=== PATIENT | female | born 1965 | race Caucasian/White ===

== ENCOUNTER 2020-07-25 07:39 | Outpatient (CLI) | payer OTHER, SELFPAY ==
[2020-07-25 08:00] LABS: Basophils Absolute Auto 0.1 K/mm3 (0.0-0.1); Basophils Percent Auto 0.9 % (0.2-1.2); Eosinophils Absolute Auto 0.2 K/mm3 (0-0.3); Eosinophils Percent Auto 4.1 % (0-4.4); Hematocrit 45.2 % (37.0-47.0); Hemoglobin 15.4 g/dL (12.0-15.0); Immature Granulocyte Absolute 0.01 K/mm3 (0.00-0.031); Immature Granulocyte Percent A 0.2 % (0-0.5); Lymphocytes Absolute Auto 1.92 K/mm3 (0.9-3.2); Lymphocytes Percent Auto 33.2 % (18.3-44.2); Mean Corpuscular HGB Conc 34.1 g/dl (32-36); Mean Corpuscular Hemoglobin 31.2 pg (26-34); Mean Corpuscular Volume 91.5 fl (80-100); Mean Platelet Volume 9.8 fl (7.4-10.4); Monocytes Absolute Auto 0.4 K/mm3 (0.1-0.6); Monocytes Percent Auto 6.6 % (2.6-8.5); Neutrophils Absolute Auto 3.2 K/mm3 (1.3-6.7); Platelet Count Result 141 k/mm3 (150-375); Red Blood Count 4.94 M/mm3 (4.2-5.4); White Blood Count 5.8 K/mm3 (4.5-10.0)
[2020-07-25 08:14] LABS: Anion Gap 9 mmol/L (8-16); Blood Urea Nitrogen 22 mg/dL (7-17); Calcium 9.5 mg/dL (8.4-10.2); Carbon Dioxide 26 mmol/L (22-30); Chloride 103 mmol/L (98-107); Cholesterol 232 mg/dL (0-200); Estimated Glomerular Filt Rate > 60; Glucose 131 mg/dL (65-105); HDL Direct 53 mg/dL; Potassium 4.5 mmol/L (3.4-5.0); Sodium 138 mmol/L (137-145); Triglycerides 94 mg/dL (<150)
[2020-07-25 08:25] LABS: LDL Cholesterol Direct 156 mg/dL
[2020-07-25 08:55] LABS: Free T4 Free Thyroxine 0.88 ng/mL (0.78-2.19)
== END 2020-07-25 07:40 | disposition home or self-care (01) ==
PROVIDERS: PCP Family Medicine; Visit Provider Family Medicine
DX: Z13.220 Encounter for screening for lipoid disorders (principal); Z13.1 Encounter for screening for diabetes mellitus; Z13.0 Encounter for screening for diseases of the blood and blood-forming organs and certain disorders involving the immune mechanism; Z13.29 Encounter for screening for other suspected endocrine disorder
CPT/HCPCS: 36415; 80048; 80061; 84439; 84443; 85025

== ENCOUNTER 2020-08-31 09:06 | Outpatient (CLI) | payer OTHER, SELFPAY ==
--- NOTE | ~2020-08-31 | MM_ITS ---
EXAMINATION: MM screening stephanie BI w gayathri HISTORY: Screening TECHNIQUE: Craniocaudal and mediolateral oblique 3-D tomosynthesis images were obtained and synthetic 2-D images were generated. CAD analysis was submitted and interpreted. COMPARISON: 05/03/2011 BREAST PARENCHYMAL COMPOSITION: The breasts are heterogenously dense, which may obscure small masses. FINDINGS: There are developing asymmetries in the upper central aspect of the right breast. The left breast is stable without evidence for malignancy. IMPRESSION: 1. Developing right breast asymmetries. 2. Additional mammographic views and possible breast ultrasound are recommended. BI-RADS Category 0: Incomplete: Needs additional imaging evaluation. Reviewed, dictated and finalized at location A. RMATION RESOURCE CONSULTANT IMPRESSION: 1. Developing right breast asymmetries. 2. Additional mammographic views and possible breast ultrasound are recommended . BI-RADS Category 0: Incomplete: Needs additional imaging evaluation.
== END 2020-08-31 09:07 | disposition home or self-care (01) ==
LOC: ANHIMG 09:09
PROVIDERS: PCP Family Medicine; Visit Provider Family Medicine
DX: Z12.31 Encounter for screening mammogram for malignant neoplasm of breast (principal); R92.8 Other abnormal and inconclusive findings on diagnostic imaging of breast
CPT/HCPCS: 77063; 77067

== ENCOUNTER 2020-11-06 13:19 | Outpatient (CLI) | payer OTHER, SELFPAY ==
--- NOTE | ~2020-11-06 | MM_ITS ---
EXAMINATION: MM diagnostic mammo unilat RT HISTORY: Right breast focal asymmetry on screening mammogram TECHNIQUE: Additional 3-D tomosynthesis images of the right breast were performed and synthetic 2-D i mages were generated. CAD analysis was submitted and interpreted. COMPARISON: 08/31/2020, 05/03/2011, 04/02/2010 BREAST PARENCHYMAL COMPOSITION: The breasts are heterogeneously dense, which may obscure small masses . FINDINGS: No persistent focal asymmetry is identified with spot compression views of the right breast . There is no suspicious mass, calcification, or architectural distortion. IMPRESSION: 1. No mammographic evidence of malignancy. 2. Recommend routine screening mammography in one year. BI-RADS Category 1: Negative Reviewed, dictated and finalized at location A.
== END 2020-11-06 13:20 | disposition home or self-care (01) ==
LOC: ANHIMG 13:21
PROVIDERS: PCP Family Medicine; Visit Provider Family Medicine
DX: R92.8 Other abnormal and inconclusive findings on diagnostic imaging of breast (principal); R92.2 Inconclusive mammogram
CPT/HCPCS: 77065; 77066

== ENCOUNTER 2021-01-06 07:57 | Emergency (ER) | payer OTHER, SELFPAY ==
[2021-01-06] VITALS (28 sets, daily range): BP systolic 125–158; BP diastolic 70–106; PULSE 65–81; RESP 10–21; TEMP 37.2; O2SAT 95–100
--- NOTE | 2021-01-06 08:11 | ECG_ITS ---
Measurements Intervals [place] Rate: 76 P: 40 [place]: 161 QRS: 19 QRSD: 86 T: 97 QT: 377 QTc: 424 Interpretive Statements SINUS RHYTHM BORDERLINE ST-T WAVE ABNORMALITY- ANTEROLAT/HIGH LAT LEADS BASELINE ARTIFACT- II, III, AVR, AVF, V1, V3-V6 BORDERLINE ECG Electronically Signed On 01-06-2021 8:27:59 CDT by Henry Reilly D.O.
[2021-01-06 09:51] LABS: Basophils Absolute Auto 0.1 K/mm3 (0.0-0.1); Basophils Percent Auto 0.9 % (0.2-1.2); Eosinophils Absolute Auto 0.2 K/mm3 (0-0.3); Hemoglobin 16.2 g/dL (12.0-15.0); Immature Granulocyte Absolute 0.02 K/mm3 (0.00-0.031); Immature Granulocyte Percent A 0.3 % (0-0.5); Lymphocytes Absolute Auto 2.04 K/mm3 (0.9-3.2); Lymphocytes Percent Auto 30.4 % (18.3-44.2); Mean Corpuscular HGB Conc 33.1 g/dl (32-36); Mean Corpuscular Hemoglobin 30.6 pg (26-34); Mean Corpuscular Volume 92.5 fl (80-100); Mean Platelet Volume 9.4 fl (7.4-10.4); Monocytes Absolute Auto 0.4 K/mm3 (0.1-0.6); Neutrophils Percent Auto 59.4 % (45.5-73.1); Platelet Count Result 145 k/mm3 (150-375); Red Cell Distribution Width 12.8 % (11.5-14.5); White Blood Count 6.7 K/mm3 (4.5-10.0)
[2021-01-06 10:02] LABS: Alanine Aminotransferase 46 U/L (4-35); Albumin Level 4.6 g/dL (3.5-5.1); Alkaline Phosphatase 85 U/L (38-126); Anion Gap 8 mmol/L (8-16); Aspartate Amino Transferase 32 U/L (14-36); Bilirubin,Total 0.6 mg/dL (0.2-1.3); Blood Urea Nitrogen 14 mg/dL (7-17); Calcium 9.7 mg/dL (8.4-10.2); Carbon Dioxide 28 mmol/L (22-30); Chloride 104 mmol/L (98-107); Estimated CRCL calculation 89 ml/min; Estimated Glomerular Filt Rate > 60; Glucose 107 mg/dL (65-105); Potassium 4.4 mmol/L (3.4-5.0); Sodium 140 mmol/L (137-145)
[2021-01-06] MEDS: diazePAM INJ (*CRX) 10 MG/2 ML SYRINGE 2.5 MG IV PUSH ×2 (10:03→10:20)
[2021-01-06] MEDS: FAMOTIDINE 20 MG/2 ML VIAL IV PUSH (10:04)
[2021-01-06] MEDS: MECLIZINE HCL 25 MG TABLET PO (10:04)
[2021-01-06] MEDS: SODIUM CHLORIDE 0.9% IV 1,000 ML 999 ML IV CONT (10:04)
[2021-01-06] MEDS: PROCHLORPERAZINE EDISYLATE 10 MG/2 ML VIAL IV PUSH (10:04)
--- NOTE | 2021-01-06 11:15 | ED.GENADULT ---
HPI - General Adult General Chief complaint: Dizziness Stated complaint: dizziness Time Seen by Provider: 01/06/21 09:02 Source: patient, family and RN notes reviewed Mode of arrival: ambulatory Limitations: no limitations History of Present Illness HPI narrative: Patient is a 55-year-old female who presents to emergency department for evaluation of vertigo that began Monday upon waking patient notes that she developed vertigo symptoms that occur with position change and looking to the right patient notes that she has had vertigo in the distant past that was similar in nature patient denies any URI symptoms or recent illness patient notes mild posterior head pain and neck pain patient attempted [id number] medications with minimal improvement saw her chiropractor with no improvement x2 patient on arrival does not appear distressed or uncomfortable Related Data Allergies Allergy/AdvReac Type Severity Reaction Status Date / Time No Known Allergies Allergy Unverified 03/20/19 11:35 Review of Systems Review of Systems: All systems reviewed & are unremarkable except as noted in HPI and below PMFSH Family History Family History (Updated 03/13/14 @ 07:13 by DOCTOR UNKNOWN) Other Family history of arthritis Family history of malignant neoplasm Hypertension Social History Social History Smoking status: Never smoker Alcohol intake: current Exam Narrative: Exam Narrative: GENERAL: Well-appearing, well-nourished, and in no acute distress. HEAD: Normocephalic, atraumatic. EYES: PERRLA and EOMI. ENT: Nares clear, no rhinorrhea or epistaxis. Mucous membranes moist. Oropharynx without tonsillar hypertrophy exudate or other lesions. Bilateral TMs pearly riley nonbulging CHEST: Clear to auscultation. No respiratory distress. No wheezes rales or rhonchi HEART: Regular rate and rhythm. No murmur heard. Normal peripheral pulses. EXTREMITIES: Normal range of motion. No edema. SKIN: Warm, dry, no rash. NEURO: No focal deficits. Alert and oriented x3. Cranial nerves II through XII grossly intact. Normal speech. Normal gait PSYCH: Normal mood and affect. Course Course Emergency Course: Patient evaluated for vertigo in the emergency department was hydrated given medications with some improvement will be discharged home with outpatient follow-up patient will be referred to primary care and neurology and ENT for further evaluation of her symptoms given reasons to return ABCs and vital signs intact and stable. Patient made aware of her case findings treatment plan and diagnosis Vital Signs Vital signs: Vital Signs Pulse Rate 77 01/06/21 08:06 Respiratory Rate 15 01/06/21 08:06 Pulse Oximetry 100 01/06/21 08:06 Temperature 98.9 F 01/06/21 08:38 Pulse Rate 70 01/06/21 09:01 Respiratory Rate 19 01/06/21 09:01 Blood Pressure 137/89 01/06/21 09:01 Pulse Oximetry 96 01/06/21 09:01 Medical Decision Making MDM Narrative Medical decision making narrative: Patients dizziness is positional and without focal neurological deficits on exam. Subarachnoid hemorrhage is felt to be unlikey at this time. There is no history of fever, and neck is supple without meningismus, making meningitis unlikely. No traumatic history or signs of trauma on exam. No risk factors for CVA, risk factors reviewed. NO ocular signs on exam and in history to suggest acute glaucoma. Patients dizziness is felt to be a reasonable candidate for outpatient evaluation Vital Signs Vital Signs: Vital Signs Pulse Rate 77 01/06/21 08:06 Respiratory Rate 15 01/06/21 08:06 Pulse Oximetry 100 01/06/21 08:06 Temperature 98.9 F 01/06/21 08:38 Pulse Rate 70 01/06/21 09:01 Respiratory Rate 19 01/06/21 09:01 Blood Pressure 137/89 01/06/21 09:01 Pulse Oximetry 96 01/06/21 09:01 Lab Data Result diagrams: 01/06/21 09:37 01/06/21 09:37
[2021-01-06 11:27] LABS: Add Urine Microscopic? YES; Appearance Urine Clear (Clear); Bacteria Urine 2+ /hpf; Bilirubin Urine Negative (Negative); Blood Urine Negative (Negative); Color Urine Yellow (Yellow); Glucose Urine UA Negative (Negative); Ketones Urine Negative (Negative); Leukocyte Esterase Ur Trace LEU/UL (Negative); Mucus Urine Rare /lpf; Nitrate Urine Negative (Negative); Protein Urine Negative (Negative); RBC Urine 0-2 /hpf (0-2); Squamous Epithelial Cell Urine Moderate /hpf (Few); Urobilinogen Urine Negative mg/dL (<2.0); WBC Urine 0-3 /hpf
== END 2021-01-06 12:07 | disposition home or self-care (01) ==
PROVIDERS: Emergency Medicine Emergency Medical Services; Emergency Provider Emergency Medicine; PCP Family Medicine
DX: R42 Dizziness and giddiness (principal)
CPT/HCPCS: 36415; 80053; 81001; 85025; 93005; 96361; 96374; 96375; 99284; A9270; J0780; J3360; J7030

== ENCOUNTER 2021-12-22 09:29 | Outpatient (CLI) | payer OTHER, SELFPAY ==
--- NOTE | ~2021-12-22 | MM_ITS ---
EXAMINATION: MM screening [facility] BI w gayathri HISTORY: Screening mammogram TECHNIQUE: Craniocaudal and mediolateral oblique 3-D tomosynthesis images were obtained and synthetic 2-D images were generated. CAD analysis was submitted and interpreted. COMPARISON: 11/06/2020, 08/31/2020, 05/03/2011 BREAST PARENCHYMAL COMPOSITION: The breasts are heterogeneously dense, which may obscure small masses . FINDINGS: There is no suspicious mass, calcification, or architectural distortion to suggest malignan cy in either breast. There has been no suspicious interval change. IMPRESSION: 1. No mammographic evidence of malignancy. 2. Recommend routine screening mammography in one year. BI-RADS Category 1: Negative Reviewed, dictated and finalized at location A.
== END 2021-12-22 09:30 | disposition home or self-care (01) ==
LOC: ANHIMG 09:31
PROVIDERS: PCP Family Medicine; Visit Provider Family Medicine
DX: Z12.31 Encounter for screening mammogram for malignant neoplasm of breast (principal)
CPT/HCPCS: 77063; 77067

== ENCOUNTER 2022-08-09 19:25 | Emergency (ER) | payer OTHER, SELFPAY ==
--- NOTE | ~2022-08-09 | XR_ITS ---
EXAMINATION: [id number] Exam Date/Time: 08/09/2022 19:45 RESEARCH TECHNOLOGIST HISTORY: RT RIB PAIN AFTER INJURY AT GYM Comparison: 04/29/2011. RESULT: Lines, tubes, and devices: None. Lungs and pleura: Clear. Cardiothymic silhouette: Stable. Other: No acute osseous or upper abdominal finding. IMPRESSION: No acute cardiopulmonary process. No acute osseous finding in the right ribs. Reviewed, dictated and finalized at location K. ARCH TECHNOLOGIST
[2022-08-09 19:37] VITALS: BP 143/81; PULSE 70; RESP 16; TEMP 36.7; O2SAT 95
--- NOTE | 2022-08-09 19:55 | ED.GENADULT ---
HPI - General Adult General Chief complaint: Back Pain/Injury Stated complaint: rt rib pain Time Seen by Provider: 08/09/22 19:45 Source: patient and RN notes reviewed Mode of arrival: ambulatory Limitations: no limitations History of Present Illness HPI narrative: 57year old female who presents to [facility] care with complaints of hitting her right rib area on exercise equipment about1 week ago. Patient has palpable tenderness to right rib area from right anterior lower rib region around laterally which is tender to palpation Patient reports no shortness of breath or any acute pain with breathing or inability to take a deep breath. Patient reports that she has taken some Ibuprofen and Tylenol and used Lidocaine patch along her ribs. MD complaint: right rib pain Onset (ago): day(s) (10 day history ) Location: chest (right anterior along rib cage laterally) Severity scale (1-10): 6 Related Data Home Medications Medication Instructions Recorded Confirmed cetirizine 10 mg tablet (Zyrtec) 10 mg PO DAILY 08/09/22 08/09/22 ibuprofen 800 mg tablet 800 mg PO DAILY 08/09/22 08/09/22 Allergies Allergy/AdvReac Type Severity Reaction Status Date / Time No Known Allergies Allergy Verified 08/09/22 19:51 Review of Systems Review of Systems: CONSTITUTIONAL: Denies fever, chills, or sweats. EYES: Denies visual changes, redness, or discharge. ENT: Denies rhinorrhea, congestion, sore throat, or otalgia. CARDIOVASCULAR: Denies chest pain, palpitations, or edema. RESPIRATORY: Reports pain along her right anterolateral rib cage region, no cough or dyspnea. GASTROINTESTINAL: Denies abdominal pain, nausea, vomiting, or diarrhea. GENITOURINARY: Denies dysuria or hematuria. SKIN: Denies rash or itching. MUSCULOSKELETAL: Denies back pain, joint pain, or myalgia. NEUROLOGIC: Denies headache, numbness, or weakness. PSYCHIATRIC: Denies anxiety or depression. All systems reviewed & are unremarkable except as noted in HPI and below [facility] Past Medical History Medical History (Updated 08/13/22 @ 09:08 by Lori Batista NP) Cardiomyopathy GERD (gastroesophageal reflux disease) Plantar fasciitis Surgical History Surgical History (Updated 08/13/22 @ 09:10 by Lori Batista NP) H/O cardiac radiofrequency ablation History of dilatation and curettage History of endometrial ablation Hx of JANE Previous section Family History Family History Other Family history of arthritis Family history of malignant neoplasm Hypertension Social History Social History Smoking status: Never smoker Alcohol intake: current Comments At time of signature, agree with nursing past medical, surgical, social and family history. There is no relevant family history pertinent to the presenting complaint Exam Narrative: GENERAL: Well-appearing, well-nourished, and in no acute distress. HEAD: Normocephalic, atraumatic. EYES: PERRLA and EOMI. ENT: Nares clear, no rhinorrhea or epistaxis. Mucous membranes moist.TM's normal with good light reflex, throat pink with no lesions or swelling NECK: Supple.no lymphadenopathy CHEST: Clear to auscultation. No respiratory distress.SAO2 95% on room air some palpable discomfort along anterior right ribs to lateral rib area, no cough noted or dyspnea HEART: Regular rate and rhythm. No murmur heard. Normal peripheral pulses. ABDOMEN: Soft, nontender, nondistended, normal active bowel sounds. EXTREMITIES: Normal range of motion. No edema. SKIN: Warm, dry, no rash. NEURO: No focal deficits. Alert and oriented x3. Course Course Emergency Course: Patient is aware of diagnosis, understands and agrees to treatment plan.? Anticipatory guidance given.? Patient agrees to follow-up as directed and is aware of reasons to seek care at the emergency department. Portions of this record may have been created w
== END 2022-08-09 20:50 | disposition home or self-care (01) ==
PROVIDERS: Emergency Provider Registered Nurse; PCP Family Medicine
DX: R07.89 Other chest pain (principal); K21.9 Gastro-esophageal reflux disease without esophagitis; I42.9 Cardiomyopathy, unspecified
CPT/HCPCS: 71101; 99213; G0463

== ENCOUNTER 2022-08-30 13:16 | Outpatient (CLI) | payer OTHER, SELFPAY ==
[2022-08-30 14:34] LABS: Basophils Percent Auto 0.8 % (0.2-1.2); Eosinophils Absolute Auto 0.1 K/mm3 (0-0.3); Eosinophils Percent Auto 1.8 % (0-4.4); Hematocrit 43.7 % (37.0-47.0); Immature Granulocyte Absolute 0.01 K/mm3 (0.00-0.031); Immature Granulocyte Percent A 0.2 % (0-0.5); Immature Platelet Fraction Pct 5.6 % (0.9-11.2); Lymphocytes Absolute Auto 2.15 K/mm3 (0.9-3.2); Lymphocytes Percent Auto 42.8 % (18.3-44.2); Mean Corpuscular HGB Conc 34.3 g/dl (32-36); Mean Corpuscular Volume 93.2 fl (80-100); Mean Platelet Volume 10.9 fl (7.4-10.4); Monocytes Absolute Auto 0.4 K/mm3 (0.1-0.6); Monocytes Percent Auto 7.4 % (2.6-8.5); Neutrophils Absolute Auto 2.4 K/mm3 (1.3-6.7); Platelet Count Result 116 k/mm3 (150-375); Red Blood Count 4.69 M/mm3 (4.2-5.4); Red Cell Distribution Width 13.2 % (11.5-14.5)
[2022-08-30 14:44] LABS: Anion Gap 6 mmol/L (8-16); Blood Urea Nitrogen 8 mg/dL (7-17); Calcium 8.5 mg/dL (8.4-10.2); Carbon Dioxide 27 mmol/L (22-30); Chloride 101 mmol/L (98-107); Cholesterol 198 mg/dL (0-200); Estimated Glomerular Filt Rate > 60; Glucose 131 mg/dL (65-110); HDL Direct 39 mg/dL; Potassium 3.9 mmol/L (3.4-5.0); Sodium 134 mmol/L (137-145); Triglycerides 112 mg/dL (<150)
[2022-08-30 14:59] LABS: LDL Cholesterol Direct 126 mg/dL
== END 2022-08-30 13:17 | disposition home or self-care (01) ==
PROVIDERS: PCP Family Medicine; Visit Provider Family Medicine
DX: Z13.220 Encounter for screening for lipoid disorders (principal); Z13.0 Encounter for screening for diseases of the blood and blood-forming organs and certain disorders involving the immune mechanism; Z13.1 Encounter for screening for diabetes mellitus; Z13.29 Encounter for screening for other suspected endocrine disorder
CPT/HCPCS: 36415; 80048; 80061; 84443; 85025; 85055

== ENCOUNTER 2022-09-08 15:37 | Outpatient (CLI) | payer OTHER, SELFPAY | END 2022-09-08 15:38 | disposition home or self-care (01) | PROVIDERS: PCP Family Medicine; Visit Provider Family Medicine | DX: R73.01 Impaired fasting glucose (principal) | CPT/HCPCS: 36415; 83036 ==

== ENCOUNTER 2023-03-27 10:12 | Outpatient (CLI) | payer OTHER, SELFPAY ==
[2023-03-27 11:55] LABS: Basophils Absolute Auto 0.1 K/mm3 (0.0-0.1); Eosinophils Absolute Auto 0.3 K/mm3 (0-0.3); Eosinophils Percent Auto 3.5 % (0-4.4); Hematocrit 45.2 % (37.0-47.0); Hemoglobin 15.2 g/dL (12.0-15.0); Immature Granulocyte Absolute 0.02 K/mm3 (0.00-0.031); Immature Granulocyte Percent A 0.3 % (0-0.5); Lymphocytes Absolute Auto 2.38 K/mm3 (0.9-3.2); Lymphocytes Percent Auto 33.4 % (18.3-44.2); Mean Corpuscular HGB Conc 33.6 g/dl (32-36); Mean Corpuscular Hemoglobin 31.1 pg (26-34); Mean Corpuscular Volume 92.6 fl (80-100); Mean Platelet Volume 10.2 fl (7.4-10.4); Monocytes Absolute Auto 0.5 K/mm3 (0.1-0.6); Monocytes Percent Auto 6.5 % (2.6-8.5); Neutrophils Absolute Auto 3.9 K/mm3 (1.3-6.7); Neutrophils Percent Auto 55.3 % (45.5-73.1); Platelet Count Result 160 k/mm3 (150-375); Red Blood Count 4.88 M/mm3 (4.2-5.4); White Blood Count 7.1 K/mm3 (4.5-10.0)
[2023-03-27 12:14] LABS: Anion Gap 10 mmol/L (8-16); Blood Urea Nitrogen 14 mg/dL (7-17); Calcium 9.3 mg/dL (8.4-10.2); Carbon Dioxide 27 mmol/L (22-30); Chloride 102 mmol/L (98-107); Cholesterol 245 mg/dL (0-200); Estimated Glomerular Filt Rate > 60; Glucose 112 mg/dL (65-110); HDL Direct 39 mg/dL; Potassium 4.5 mmol/L (3.4-5.0); Sodium 139 mmol/L (137-145); Triglycerides 187 mg/dL (<150)
[2023-03-27 12:25] LABS: LDL Cholesterol Direct 155 mg/dL
[2023-03-27 13:51] LABS: Hemoglobin A1C 6.1 % (<5.7)
== END 2023-03-27 10:13 | disposition home or self-care (01) ==
LOC: ANHLAB 10:15
PROVIDERS: PCP Family Medicine; Visit Provider Family Medicine
DX: Z13.29 Encounter for screening for other suspected endocrine disorder (principal); R73.01 Impaired fasting glucose; Z13.0 Encounter for screening for diseases of the blood and blood-forming organs and certain disorders involving the immune mechanism; Z13.220 Encounter for screening for lipoid disorders
CPT/HCPCS: 36415; 80048; 80061; 83036; 84443; 85025

== ENCOUNTER 2023-08-23 10:19 | Outpatient (CLI) | payer OTHER, SELFPAY ==
[2023-08-23 11:13] LABS: Basophils Percent Auto 0.6 % (0.2-1.2); Eosinophils Absolute Auto 0.2 K/mm3 (0-0.3); Eosinophils Percent Auto 4.1 % (0-4.4); Hematocrit 44.7 % (37.0-47.0); Immature Granulocyte Absolute 0.01 K/mm3 (0.00-0.031); Immature Granulocyte Percent A 0.2 % (0-0.5); Lymphocytes Absolute Auto 1.82 K/mm3 (0.9-3.2); Lymphocytes Percent Auto 35.8 % (18.3-44.2); Mean Corpuscular HGB Conc 33.6 g/dl (32-36); Mean Corpuscular Volume 92.4 fl (80-100); Mean Platelet Volume 9.9 fl (7.4-10.4); Monocytes Absolute Auto 0.3 K/mm3 (0.1-0.6); Monocytes Percent Auto 5.7 % (2.6-8.5); Neutrophils Absolute Auto 2.7 K/mm3 (1.3-6.7); Neutrophils Percent Auto 53.6 % (45.5-73.1); Platelet Count Result 153 k/mm3 (150-375); Red Blood Count 4.84 M/mm3 (4.2-5.4); Red Cell Distribution Width 13.3 % (11.5-14.5); White Blood Count 5.1 K/mm3 (4.5-10.0)
[2023-08-23 11:26] LABS: Alanine Aminotransferase 25 U/L (6-35); Albumin Level 4.1 g/dL (3.5-5.1); Alkaline Phosphatase 67 U/L (38-126); Anion Gap 4 mmol/L (8-16); Aspartate Amino Transferase 25 U/L (14-36); Blood Urea Nitrogen 10 mg/dL (7-17); Calcium 9.3 mg/dL (8.4-10.2); Carbon Dioxide 29 mmol/L (22-30); Chloride 107 mmol/L (98-107); Cholesterol 142 mg/dL (0-200); Estimated Glomerular Filt Rate > 60; Glucose 97 mg/dL (65-110); HDL Direct 39 mg/dL; Potassium 4.4 mmol/L (3.4-5.0); Sodium 140 mmol/L (137-145); Triglycerides 86 mg/dL (<150)
[2023-08-23 11:28] LABS: Hemoglobin A1C 5.7 % (<5.7)
[2023-08-23 11:37] LABS: LDL Cholesterol Direct 85 mg/dL
[2023-08-23 12:56] LABS: Creatinine Urine 166.5 mg/dL
[2023-08-23 13:00] LABS: MALB Creatinine Ratio 4.1 mg/g (0-30); Microalbumin Urine Random 6.9 mg/L (0-16.7)
[2023-08-23 13:21] LABS: Vitamin D 25 Hydroxy 22.8 ng/mL
== END 2023-08-23 10:20 | disposition home or self-care (01) ==
PROVIDERS: PCP Family Medicine; Visit Provider Family Medicine
DX: Z00.00 Encounter for general adult medical examination without abnormal findings (principal); E78.5 Hyperlipidemia, unspecified; D69.6 Thrombocytopenia, unspecified; E11.9 Type 2 diabetes mellitus without complications; Z13.29 Encounter for screening for other suspected endocrine disorder
CPT/HCPCS: 36415; 80053; 80061; 82043; 82306; 83036; 84443; 85025

== ENCOUNTER 2023-12-19 14:03 | Outpatient (CLI) | payer OTHER, SELFPAY ==
--- NOTE | ~2023-12-19 | MM_ITS ---
EXAMINATION: MM screening stephanie BI w gayathri HISTORY: Screening TECHNIQUE: Craniocaudal and mediolateral oblique 3-D tomosynthesis images were obtained and synthetic 2-D images were generated. CAD analysis was submitted and interpreted. COMPARISON: Comparison to multiple prior studies sequentially, with oldest reviewed study dated 08/31. BREAST PARENCHYMAL COMPOSITION: Dense: The breasts are heterogeneously dense, which may obscure small masses FINDINGS: There is no evidence of suspicious mass, calcification, or architectural distortion to sugg est malignancy in either breast. There has been no suspicious interval change. IMPRESSION: 1. No mammographic evidence of malignancy. 2. Recommend routine screening mammography in one year. BI-RADS Category 1: Negative Reviewed, dictated and finalized at location B.
== END 2023-12-19 14:04 | disposition home or self-care (01) ==
PROVIDERS: PCP Family Medicine; Visit Provider Family Medicine
DX: Z12.31 Encounter for screening mammogram for malignant neoplasm of breast (principal)
CPT/HCPCS: 77063; 77067

== ENCOUNTER 2024-10-31 00:29 | Day surgery (SDC) | payer OTHER, SELFPAY ==
[2024-10-28 09:12] VITALS: BMI 25.9
--- OUTSIDE RECORDS SUMMARY | 2024-10-31 00:33 | XMS_ITS | Referral Summary ---
Author Organization [address] Address [address] [place] [id number] Care Team Providers Care [employer] [place] [place] Manager Name Role Phone Augustine Ledesma MD Primary Care Provid er Encounters Date Type Department Care Team Description 08/05/2024 Letter (Out) [facility] [address] [phone] 08/05/2024 8:00 AM FARM IMPLEMENT ENGINE MECHANIC Office Visit [facility] [address] [phone] Augustine Ledesma MD Annual physical exam (Primary Dx); Type 2 diabetes mellitus without complication, without long-term current use of insulin (HCC); Encounter for diabetic foot exam (HCC); Hyperlipidemia, unspecified hyperlipidemia type; Chronic bilateral low back pain without sciatica; Colon cancer screening from Last 3 Months Allergies Active Allergy Reactions Criticality Noted Date Comments Metformin Stomach upset Low 04/19/2023 Medications ubidecarenone (coenzyme Q10) 100 mg tablet Take by mouth Active cetirizine (ZyrTEC) 10 mg chewable tablet Take 1 tablet (10 mg total) by mouth daily Active fluocinonide (LIDEX) 0.05 % cream Apply topically 2 (two) times a day as needed for irritation or rash 180 g 4 09/04/19 24 Active atorvastatin (LIPITOR) 20 mg tabletIndications: Hyperlipidemia, unspecified hyperlipidemia type Take 1 tablet (20 mg total) by mouth daily 90 tablet 3 12/12/19 24 025 Active Mounjaro 5 mg/0.5 mL pen injector injectionIndicatio ns:Type 2 diabetes mellitus without complication, without long-term current use of insulin (HCC) Inject 0.5 mL (5 mg total) under the skin every 7 days 2 mL 5 10/17/19 25 Active OneTouch Verio test strips stripIndications:T ype 2 diabetes mellitus without complication, without long-term current use of insulin (HCC) Use to check blood glucose 1-2 times daily as directed 100 each 1 10/17/19 25 Active ibuprofen (ADVIL,MOTRIN) 800 mg tabletIndications: Chronic bilateral low back pain without sciatica Take 1 tablet (800 mg total) by mouth every 8 (eight) hours as needed for pain 270 tablet 3 10/17/19 25 Active OneTouch Verio test strips stripIndications:T ype 2 diabetes mellitus without complication, without long-term current use of insulin (HCC) USE DIRECTED ONCE TO TWICE DAILY 01/20/20 23 025 Discontin ued(Reord er) ibuprofen (ADVIL,MOTRIN) 800 mg tabletIndications: Chronic bilateral low back pain without sciatica Take 1 tablet (800 mg total) by mouth every 8 (eight) hours as needed for pain 270 tablet 3 12/13/19 24 025 Discontin ued(Reord er) Mounjaro 5 mg/0.5 mL pen injector INJECT 5 MG UNDER THE SKIN ONCE A WEEK DIRECTED 07/23/19 25 025 Discontin ued(Reord er) Active Problems Problem Noted Date Diagnosed Date Allergic rhinitis 09/14/2018 Immunizations Immunization Administration Dates Next Due COVID-19 mRNA ([place]) 0.3 m L (30 mcg) vaccine (12 years and up) 05/15/2023 Flucelvax Influenza Quad 05/02/2019 Influenza, Unspecified 06/19/2024(Deferr ed: Patient Refused),05/14/2023,04/19/2023(Deferred : Patient Refused),04/05/2022,05/05/2020 Pfizer SARS-CoV-2 Monovalent Vaccination (12+ Yrs) PURPLE 07/25/2020,07/04/2020 Pneumococcal Conjugate Pcv20 05/15/2023 Tdap 10/15/2014 ZOSTER Recombinant 07/03/2019,05/02/2019 Social History Tobacco Use Types Packs/Day Years Used Date Smoking Tobacco: Never Smokeless Tobacco: Never Tobacco Cessation:Counseling Given: Not Answered Alcohol Use Standard Drinks/Week Comments Yes 0 (1 standard drink = 0.6 oz pur e alcohol) AUDIT-C Answer Date Recorded Q1: How often do you have a drink containing alc ohol? Monthly or less 09/04/2023 Q2: How many drinks containi ng alcohol do you have on a typical day when you are drinking? 1 or 2 09/04/2023 Q3: How often do you have si x or more drinks on one occasion? Never 09/04/2023 PHQ-2 Answer Date Recorded PHQ-2 Total Score 0 08/05/2024 Comments No Sex and Gender Information Value Date Recorded Sex Assigned at Not on file Legal Sex Female 10:53 PM FARM IMPLEMENT ENGINE MECHANIC Gender Identity Female 05/16/2023 9:11 AM CDT Sexual Orientation Not on file Last Filed Vital Signs Vital Sign Reading Time Taken Comments Blood Pressure 136/88 08/05/2024 7:58 AM FARM IMPLEMENT ENGINE MECHANIC Pulse 74 08/05/2024 7:58 AM FARM IMPLEMENT ENGINE MECHANIC Temperature 36.9 C (98.4 F) 08/05/2024 7:58 AM FARM IMPLEMENT ENGINE MECHANIC Respiratory Rate 16 08/05/2024 7:58 AM FARM IMPLEMENT ENGINE MECHANIC Oxygen Saturation 97% 08/05/2024 7:58 AM FARM IMPLEMENT ENGINE MECHANIC Inhaled Oxygen Concentration - - Weight 82.9 kg (182 lb 12.8 oz) 08/05/2024 7:58 AM FARM IMPLEMENT ENGINE MECHANIC Height 177.8 cm (5' 10 ) 08/05/2024 7:58 AM FARM IMPLEMENT ENGINE MECHANIC Body Mass Index 26.23 08/05/2024 7:58 AM FARM IMPLEMENT ENGINE MECHANIC Plan of Treatment Not on file Procedures Procedure Name Priority Date/Time Associated Diagnosis Comments COMPREHENSIVE METABOLIC PANEL Routine 08/01/2024 2:40 PM FARM IMPLEMENT ENGINE MECHANIC MAMMOGRAPHY Routine 12/19/2023 DIABETES EYE EXAM Routine 10/23/2023 PAP AND HPV, REFLEX TO HPV GENOTYPES Routine 09/04/2023 8:32 AM FARM IMPLEMENT ENGINE MECHANIC Encounter for well woman exam with routine gynecological exam Screening for HPV (human papillomavirus) HEMOGLOBIN A1C Routine 03/27/2023 Impaired fasting glucose LIPID PANEL Routine 08/30/2022 HM COLONOSCOPY Routine 03/20/2019 9:56 AM CDT from Last 3 Months or Most Recently Relevant to Health Maintenance Results * (ABNORMAL) Comprehensive metabolic panel (08/01/2024 2:40 PM FARM IMPLEMENT ENGINE MECHANIC) SCRIBED Sodium 139 137 - 145 mmol/L EXTERNAL LAB SCRIBED Potassium 4.3(A) 3.4 - 4.0 mmol/L EXTERNAL LAB SCRIBED Chloride 106 98 - 107 mmol/L EXTERNAL LAB SCRIBED Carbon Dioxide 24 22 - 30 mmol/L EXTERNAL LAB SCRIBED Anion Gap 9 4 - 12 mmol/L EXTERNAL LAB SCRIBED Urea Nitrogen (BUN) 16 7 - 17 mg/dl EXTERNAL LAB SCRIBED Creatinine 0.69(A) 0.7 - 1.0 mg/dl EXTERNAL LAB SCRIBED Glucose 103 65 - 110 mg/dl EXTERNAL LAB SCRIBED Calcium 9.2 8.4 - 10.2 mg/dl EXTERNAL LAB SCRIBED Bilirubin 0.6 0.2 - 1.3 mg/dl EXTERNAL LAB SCRIBED Plasma Protein 7.0 6.3 - 8.2 g/dl EXTERNAL LAB SCRIBED Albumin 4.5 3.5 - 5.1 g/dl EXTERNAL LAB SCRIBED Alkaline Phosphatase 73 38 - 126 Units/L EXTERNAL LAB SCRIBED Alanine Transaminase (ALT) 16 6 - 35 Units/L EXTERNAL LAB SCRIBED Aspartate Transaminase (AST) 19 14 - 36 Units/L EXTERNAL LAB SCRIBED eGFR in >60 - - - EXTERNAL LAB SCRIBED eGFR in NonAfrican Citizen Of [place] >60 - - - EXTERNAL LAB Blood us Historical Provider LAB BLOOD ORDERABLES Lana marsh Result EXTERNAL LAB * MAMMOGRAPHY (12/19/2023) Mammography Normal Historical Provider MD HEALTH MAINTENANCE Final Result * DIABETES EYE EXAM (10/23/2023) SCRIBED DIABETIC DILATED EYE EXAM Normal Historical Provider HEALTH MAINTENANCE Final Result * Pap and HPV, reflex to HPV Genotypes (09/04/2023 8:32 AM FARM IMPLEMENT ENGINE MECHANIC) CLINICAL INFORMATION: retickr [facility] Comment: Postmenopausal WELL WOMAN EXAM LMP [employer] [facility] Comment:POSTMENOPAUSAL Previous Pap retickr [facility] Comment:NONE GIVEN Prev. Bx [facility] [employer] [facility] Comment:NONE GIVEN SOURCE: [facility] Comment:Cervix, Endocervix Pap, specimen adequacy [facility] Comment: Satisfactory for evaluation. Endocervical/transformation zone component present. HPV interp [facility] Comment: Cytology Results: Negative for intraepithelial lesion or malignancy. COMMENTS [facility] Comment: This Pap test has been evaluated with computer assisted technology. Prefabricator [facility] Comment: CONRADO GODWIN(ASCP) CT Screening Location: [place] [address] [place] [address] Comment [facility] Comment: EXPLANATORY NOTE: The Pap is a screening test for cervical cancer. It is not a diagnostic test and is subject to false negative and false positive results. It is most reliable when a satisfactory sample, regularly obtained, is submitted with relevant clinical findings and history, and when the Pap result is evaluated along with historic and current clinical information. Human papillomavirus DNA, High Risk E6/E7 Not Detected NOT DETECTED [employer] /[employer] [facility] Comment: Not Detected High Risk HPV types (16,18,31,33,35,39,45,51,52, 56,58,59,66,68) were not detected. Other HPV types which cause anogenital lesions may be present. The significance of the other types of HPV in malignant processes has not been established. Methodology: Real Time PCR Thin prep 09/04/2023 8:32 AM FARM IMPLEMENT ENGINE MECHANIC 09/06/2023 12:53 PM FARM IMPLEMENT ENGINE MECHANIC Augustine Ledesma MD LAB CYTOLOGY ORDERAB LES Final Result [facility] [address] [place] [address] [facility] [address] [place] [address] * Hemoglobin A1c (03/27/2023) SCRIBED Hemoglobin A1c 6.1 <5.7 - <5.7 % EXTERNAL LAB Blood 03/27/2023 Augustine Ledesma MD LAB BLOOD ORDERABLES Final Result EXTERNAL LAB * Lipid panel (08/30/2022) SCRIBED Cholesterol, Total 198 0 - 200 EXTERNAL LAB SCRIBED HDL 39 >35 - >35 EXTERNAL LAB SCRIBED LDL 126 <130 - <130 EXTERNAL LAB SCRIBED Triglycerides 112 <150 - <150 EXTERNAL LAB Blood Historical Provider LAB BLOOD ORDERABLES Lana l Result EXTERNAL LAB * HM COLONOSCOPY (03/20/2019 9:56 AM CDT) Scribed Colonoscopy Normal Historical Provider HEALTH MAINTENANCE Edited Result - Final from Last 3 Months or Most Recently Relevant to Health Maintenance Insurance [facility] Care Teams [employer] Manager Relationship Specialty Start Date End Date Augustine Ledesma MD [address] [place] [id number] PCP - General 04/13/11
--- OUTSIDE RECORDS SUMMARY | 2024-10-31 00:33 | XMS_ITS | Clinical Summary ---
Author Organization [address] Address [address] [place] [address] [place] [address] Care Team Providers Care Liquid Fertilizer Servicer Name Role Phone Augustine Ledesma MD Primary Care Provid er Allergies Active Allergy Reactions Criticality Noted Date [...] Noted Date Diagnosed Date Allergic rhinitis 09/14/2018 Encounters Date Type Department Care Team Description 08/05/2024 8:00 AM PATIENT CARE ASSOCIATE Office Visit [facility] [address] [place] [phone] Augustine Ledesma MD Annual physical exam (Primary Dx); Type 2 diabetes mellitus without complication, without long-term current use of insulin (HCC); Encounter for diabetic foot exam ([facility]); Hyperlipidemia, unspecified hyperlipidemia type; Chronic bilateral low back pain without sciatica; Colon cancer screening 08/05/2024 Letter (Out) [facility] [address] [phone] from Last 3 Months Immunizations Immunization Administration Dates Next Due COVID-19 mRNA ([employer]) 0.3 m L (30 mcg) vaccine (12 years and up) 05/15/2023 Flucelvax Influenza Quad 05/02/2019 Influenza, Unspecified 06/19/2024(Deferr ed: Patient Refused),05/14/2023,04/19/2023(Deferred : Patient Refused),04/05/2022,05/05/2020 Pfizer SARS-CoV-2 Monovalent Vaccination (12+ Yrs) PURPLE 07/25/2020,07/04/2020 Pneumococcal Conjugate Pcv20 05/15/2023 Tdap 10/15/2014 ZOSTER Recombinant 07/03/2019,05/02/2019 Surgical History Surgery Date Site/Laterality Comments PLANTAR FASCIA SURGERY Medical History Medical History Date Comments Hx Other Medical Arrhythmias (bi geminy, freq PAC's, PSVT, NSVT, PVC Hx Other Medical Cardiomyopathy Hx Other Medical Arrhythmias (s/ p PVC ablation) Hypertension Hypertension Adiposity Obesity Allergic rhinitis Family History * Patient is adopted Medical History Relation Name Comments Bladder Cancer Mother Bladder Cance r; Relation Name Status Comments Mother Alive Social History Tobacco Use Types Packs/Day Years [...] on file Legal Sex Female 10:53 PM PATIENT CARE ASSOCIATE Gender Identity Female 05/16/2023 9:11 AM CDT Sexual Orientation Not on file Obstetrics History Last Filed Vital Signs Vital Sign Reading Time Taken Comments Blood Pressure 136/88 08/05/2024 7:58 AM PATIENT CARE ASSOCIATE Pulse 74 08/05/2024 7:58 AM PATIENT CARE ASSOCIATE Temperature 36.9 C (98.4 F) 08/05/2024 7:58 AM PATIENT CARE ASSOCIATE Respiratory Rate 16 08/05/2024 7:58 AM PATIENT CARE ASSOCIATE Oxygen Saturation 97% 08/05/2024 7:58 AM PATIENT CARE ASSOCIATE Inhaled Oxygen Concentration - - Weight 82.9 kg (182 lb 12.8 oz) 08/05/2024 7:58 AM PATIENT CARE ASSOCIATE Height 177.8 cm (5' 10 ) 08/05/2024 7:58 AM PATIENT CARE ASSOCIATE Body Mass Index 26.23 08/05/2024 7:58 AM PATIENT CARE ASSOCIATE Plan of Treatment Health Maintenance Due Date Last Done Comments Albumin Creatinine Ratio, Urine 1965 Hepatitis C Screening 1967 Hepatitis B Screening 1985 Colon Cancer Screening-Colonoscopy 03/20/2020 03/20/2019, 03/20/2014 Lipid Panel 08/30/2023 08/30/2022 Hemoglobin A1C 09/25/2023 03/27/2023, 09/08/2022 Covid-19 Vaccine ( - 2023-2 5 season) 2024 05/15/2023, 03/31/2022, 04/23/2021, Additional history exists DTaP/Tdap/Td Vaccine (2 - Td or Tdap) 10/15/2024 10/15/2014 Dilated Eye Exam 10/22/2024 10/23/2023, 10/17/2022 Breast Cancer Screening-Mammogram 12/18/2024 12/19/2023, 12/22/2021, 08/31/2020 eGFR 08/01/2025 08/01/2024, 03/27/2023 Depression Screening 08/05/2025 08/05/2024, 09/04/2023, 09/02/2022, Additional history exists Foot Exam 08/05/2025 08/05/2024, 07/18, 09/04/2023, Additional history exists Regular Well Visit/Exam 18-64 08/05/2025, 08/05/2024, 09/04/2023, Additional history exists Cervical Cancer Screening 09/04/2026 09/04/2023, Colon Cancer Screening-CT Colonography Discontinued 03/20/2019, 03/20/2014 Colon Cancer Screening-DNA Stool Discontinued 03/20/20 19, 03/20/2014 Colon Cancer Screening-FIT Discontinued 03/20/2019, Colon Cancer Screening-Sigmoidoscopy Discontinued 03/20/2019, 03/20/2014 Zoster Vaccine Completed 07/03/2019, 05/02/2019 Pneumococcal vaccine <65 Completed 05/15/2023 Influenza Vaccine Completed 2024, , 04/05/2022, Additional history exists Procedures Procedure Name Priority Date/Time Associated Diagnosis Comments COMPREHENSIVE METABOLIC PANEL Routine 08/01/2024 2:40 PM PATIENT CARE ASSOCIATE MAMMOGRAPHY Routine 12/19/2023 DIABETES EYE EXAM Routine 10/23/2023 PAP AND HPV, REFLEX TO HPV GENOTYPES Routine 09/04/2023 8:32 AM PATIENT CARE ASSOCIATE Encounter for well woman exam with routine gynecological exam Screening for HPV (human papillomavirus) HEMOGLOBIN A1C Routine 03/27/2023 Impaired fasting glucose LIPID PANEL Routine 08/30/2022 COLONOSCOPY Routine 03/20/2019 9:56 AM CDT from Last 3 Months or Most Recently Relevant to Health Maintenance Results * (ABNORMAL) Comprehensive metabolic panel (08/01/2024 2:40 PM PATIENT CARE ASSOCIATE) SCRIBED Sodium 139 137 - 145 mmol/L [...] - EXTERNAL LAB SCRIBED eGFR in NonAfrican [place] >60 - - - EXTERNAL LAB Blood Historical Provider MD LAB BLOOD ORDERABLES Lana marsh Result EXTERNAL LAB * MAMMOGRAPHY (12/19/2023) Mammography Normal Historical Provider MD HEALTH MAINTENANCE Final Result * DIABETES EYE EXAM (10/23/2023) SCRIBED DIABETIC DILATED EYE EXAM Normal [facility] Provider HEALTH MAINTENANCE Final Result * Pap and HPV, reflex to HPV Genotypes (09/04/2023 8:32 AM PATIENT CARE ASSOCIATE) CLINICAL INFORMATION: [place] [facility] Comment: Postmenopausal WELL WOMAN EXAM LMP [facility] [employer] [facility] Comment:POSTMENOPAUSAL Previous Pap [facility] [employer] [facility] Comment:NONE GIVEN Prev. Bx [facility] [employer] [facility] Comment:NONE GIVEN SOURCE: [facility] [employer] [facility] Comment:Cervix, Endocervix Pap, specimen adequacy [facility] Comment: Satisfactory for evaluation. Endocervical/transformation zone component present. HPV interp [facility] Comment: Cytology Results: Negative for intraepithelial lesion or malignancy. COMMENTS [facility] Comment: This Pap test has been evaluated with computer assisted technology. Academic Specialist [facility] Comment: CONRADO GODWIN(ASCP) CT Screening Location: [place] [address] [place] [address] Comment [facility] [employer] [facility] Comment: EXPLANATORY NOTE: The Pap is a [...] High Risk E6/E7 Not Detected NOT DETECTED [employer] [facility] Comment: Not Detected High Risk HPV types (16,18,31,33,35,39,45,51,52, 56,58,59,66,68) were not detected. Other HPV types which cause anogenital lesions may be present. The significance of the other types of HPV in malignant processes has not been established. Methodology: Real Time PCR Thin prep 09/04/2023 8:32 AM PATIENT CARE ASSOCIATE 09/06/2023 12:53 PM PATIENT CARE ASSOCIATE Augustine Ledesma MD LAB CYTOLOGY ORDERAB LES Final Result [facility] [address] [place] [address] [facility] [address] [place] [address] * Hemoglobin A1c (03/27/2023) SCRIBED Hemoglobin A1c 6.1 <5.7 - <5.7 % EXTERNAL LAB Blood 03/27/2023 Augustine Ledesma MD LAB BLOOD ORDERABLES Final Result Performing Organization Address [facility] Co de Phone Number EXTERNAL LAB * Lipid panel (08/30/2022) SCRIBED Cholesterol, Total 198 0 - 200 EXTERNAL LAB SCRIBED HDL 39 >35 - >35 EXTERNAL LAB SCRIBED LDL 126 <130 - <130 EXTERNAL LAB SCRIBED Triglycerides 112 <150 - <150 EXTERNAL LAB Blood Historical Provider LAB BLOOD ORDERABLES Lana l Result EXTERNAL LAB * HM COLONOSCOPY (03/20/2019 9:56 AM CDT) Scribed HM Colonoscopy Normal Historical Provider HEALTH MAINTENANCE Edited Result - Final from Last 3 Months or Most Recently Relevant to Health Maintenance Insurance [facility] [place] [employer] Address: [address] [address] [place] [address] [facility] [place] [employer] Address: [address] [address] [place] [address] Care Teams Liquid Fertilizer Servicer Relationship Specialty Start Date End Date Augustine Ledesma MD [address] [place] [id number] PCP - General 04/13/11
--- OUTSIDE RECORDS SUMMARY | 2024-10-31 00:33 | XMS_ITS | Clinical Summary ---
Author Organization [facility] Address [address] [place] [id number] Care Team Providers Care Tire Changer Name Role Phone Unavailable Primary Care Provider Unavailabl e Social History Tobacco Use Types Packs/Day Years Used Date Smoking Tobacco: Never Assessed Comments Unknown Sex and Gender Information Value Date Recorded Sex Assigned at Not on file Legal Sex Female 5:54 PM CDT Gender Identity Not on file Sexual Orientation Not on file Plan of Treatment Health Maintenance Due Date Last Done Comments Cervical Cancer Screening Pa p Smear (Age 30 to 64) Every 3 Years 1967 Colorectal Cancer Screening Colonoscopy (10 Years) 1967 Annual Physical 1970 Hepatitis C 1985 DTaP, Tdap and Td Vaccines ( 1 - Tdap) 1986 Hepatitis B Vaccines (1 of 3 - 19+ 3-dose series) 1986 Cervical Cancer Screening Pa p with HPV Testing (Age 30 to 64) Every 5 Years 1997 Cervical Cancer Screening with HPV 1997 Mammogram Screening 2007 Zoster Vaccines (1 of 2) 2017 COVID-19 Vaccine (2023-2 5 season) 2024 Meningococcal B Vaccine Aged Out No l onger eligible based on patient's age to complete this topic Meningococcal Vaccine Aged Out No martinez gibson eligible based on patient's age to complete this topic Pneumococcal Vaccine: Pediat rics (0 to 5 Years) and At-Risk Patients (6 to 49 Years) Aged Out No longer eligible b ased on patient's age to complete this topic RSV Immunizations Under 20 Months Aged Out No longer eligible based on patient's age to complete this topic
[2024-10-31 07:13] VITALS: BP 142/79; PULSE 82; RESP 18; TEMP 36.6; O2SAT 98; BMI 25.9
[2024-10-31] MEDS: LACTATED RINGERS 1,000 ML 150 ML IV CONT (07:24)
[2024-10-31 07:26] LABS: Glucose Point of Care 104 mg/dl (65-105)
--- NOTE | 2024-10-31 07:49 | WPDANESEPPF ---
Anes - Initial Pre Proc Eval Procedure: Operation Date: 10/31/24 08:30 Proposed Procedures p Screening Colonoscopy - Miguel Toro MD Date/Time: 10/31/24 07:49 Surgeon: Miguel Toro MD Pre Op Diagnosis: screening colon Patient Data Age: 59 Gender: F Height: 1.78 m Weight: 82 kg Last Vital Signs Temp 36.6 C 10/31/24 07:13 Pulse 82 10/31/24 07:13 Resp 18 10/31/24 07:13 BP 142/79 H 10/31/24 07:13 Pulse Ox 98 10/31/24 07:13 O2 Del Method Room Air 10/31/24 07:13 Allergies Allergy/AdvReac Type Severity Reaction Status Date / Time metformin AdvReac Severe Diarrhea Verified 10/31/24 07:11 Home Medications ?Medication ?Instructions ?Recorded ?Confirmed ?Type cetirizine 10 mg tablet (Zyrtec) 10 mg PO DAILY 08/09/22 10/31/24 History ibuprofen 800 mg tablet 800 mg PO DAILY 08/09/22 10/31/24 History acetaminophen 500 mg capsule 1,000 mg PO DAILY 10/28/24 10/28/24 History atorvastatin 20 mg tablet 20 mg PO DAILY 10/28/24 10/31/24 History tirzepatide 5 mg/0.5 mL 5 mg subcut WEEKLY 10/28/24 10/28/24 History subcutaneous pen injector (Mounjaro) Laboratory Tests 10/31/24 07:22 POC Capillary Glucose 104 mg/dl (65-105) Patient hx anesthesia problems: none Family hx anesthesia problems: none Results Review: All pre-operative results and documents have been reviewed as part of the pre-operative evaluation. [facility] Past Medical History Medical History Cardiomyopathy Plantar fasciitis GERD (gastroesophageal reflux disease) Surgical History Surgical History Previous section History of dilatation and curettage H/O cardiac radiofrequency ablation History of endometrial ablation Hx of LASIK Family History Family History Other Family history of arthritis Family history of malignant neoplasm Hypertension Social History Social History Smoking status: Never smoker Alcohol intake: current Living arrangements: with family Spiritual care concerns: No Anes - Eval Final PreProcedure Day of Procedure 10/31/24 07:49 Patient weight: overweight Heart: regular rate and rhythm Lungs: clear to auscultation Airway: Mallampati scale class II Neurological: alert and oriented Last oral intake: >/= 8 hours ASA classification: III Emergent: no Anesthetic plan: proceed Anesthesia type and monitoring: general GIVS and standard monitoring Results Review: All pre-operative results and documents have been reviewed as part of the pre-operative evaluation. Informed Consent: The patient's anesthetic plan and its attendant risks and benefits were discussed with the patient/family/POA. Questions were solicited and answers provided to the satisfaction of the patient/family/POA.
--- NOTE | 2024-10-31 08:09 | PM.HPGS ---
History of Present Illness History of Present Illness Consent: Risks, benefits, and alternatives have been discussed and questions answered. Patient agrees to proceed with procedure. Chief complaint: screening colon Narrative: Wilma Pina is a 59 year old female here for screening colonoscopy, last one 2017 Review of Systems Review of Systems: All systems reviewed & are unremarkable except as noted in HPI and below PMFSH Past Medical History Medical History (Updated 10/31/24 @ 08:10 by Miguel Toro MD) Colon cancer screening Cardiomyopathy Plantar fasciitis GERD (gastroesophageal reflux disease) Surgical History Surgical History Previous section History of dilatation and curettage H/O cardiac radiofrequency ablation History of endometrial ablation Hx of LASIK Family History Family History Other Family history of arthritis Family history of malignant neoplasm Hypertension Social History Social History Smoking status: Never smoker Alcohol intake: current Living arrangements: with family Spiritual care concerns: No Meds Home Medications and Allergies Home Medications ?Medication ?Instructions ?Recorded ?Confirmed ?Type cetirizine 10 mg tablet (Zyrtec) 10 mg PO DAILY 08/09/22 10/31/24 History ibuprofen 800 mg tablet 800 mg PO DAILY 08/09/22 10/31/24 History acetaminophen 500 mg capsule 1,000 mg PO DAILY 10/28/24 10/28/24 History atorvastatin 20 mg tablet 20 mg PO DAILY 10/28/24 10/31/24 History tirzepatide 5 mg/0.5 mL 5 mg subcut WEEKLY 10/28/24 10/28/24 History subcutaneous pen injector (Mounjaro) Allergies Allergy/AdvReac Type Severity Reaction Status Date / Time metformin AdvReac Severe Diarrhea Verified 10/31/24 07:11 Vital Signs Vital Signs - 24 hr 10/31/24 07:13 Temperature 97.8 F Pulse Rate 82 Respiratory Rate 18 Blood Pressure 142/79 H Pulse Oximetry 98 Oxygen Delivery Room Air Exam Const: General: comfortable and no acute distress HENMT: Face/Nose/Sinus: Normal nares present Eyes: General: appearance normal, both eyes and all related structures Neck: Neck: no JVD Resp: Auscultation: clear to auscultation bilaterally Cardio: Rate: regular rate Rhythm: regular rhythm GI: Inspection: non-distended GI Palp: Yes Soft to palpation Skin: General skin exam: normal color Neuro: General: gait normal Speech: normal speech Extrem: General: normal to inspection Psych: Mental Status: mental status grossly normal Assessment and Plan Assessment and plan (1) Colon cancer screening: Code(s): Z12.11 - Encounter for screening for malignant neoplasm of colon Status: Acute Assessment and Plan: colonoscopy
[2024-10-31 08:34] VITALS: BP 121/63; PULSE 70; RESP 18; O2SAT 99
[2024-10-31 08:44] VITALS: BP 112/66; PULSE 65; RESP 18; O2SAT 100
[2024-10-31 08:54] VITALS: BP 133/74; PULSE 62; RESP 18; O2SAT 100
== END 2024-10-31 09:01 | disposition home or self-care (01) ==
PROVIDERS: PCP Physician Assistant; Visit Provider Internal Medicine Gastroenterology
PROC: 0DJD8ZZ Inspection of Lower Intestinal Tract, Via Natural or Artificial Opening Endoscopic (ICD-10-PCS; CPT 45378; principal; 2024-10-31 08:30)
DX: Z12.11 Encounter for screening for malignant neoplasm of colon (principal); D12.2 Benign neoplasm of ascending colon; K63.5 Polyp of colon; K64.8 Other hemorrhoids; Z79.85 Long-term (current) use of injectable non-insulin antidiabetic drugs
CPT/HCPCS: 45380; 82948; 88305; J2003; J2405; J2704; J7120

== ENCOUNTER 2024-12-19 09:14 | Outpatient (CLI) | payer OTHER, SELFPAY ==
--- NOTE | ~2024-12-19 | MM_ITS ---
EXAMINATION: MM screening [facility] BI w gayathri HISTORY: Screening TECHNIQUE: Craniocaudal and mediolateral oblique 3-D tomosynthesis images were obtained and synthetic 2-D images were generated. CAD analysis was submitted and interpreted. COMPARISON: 12/19/2023 through 04/02/2010. BREAST PARENCHYMAL COMPOSITION: Dense: The breasts are heterogeneously dense, which may obscure small masses FINDINGS: There is no evidence of suspicious mass, calcification, or architectural distortion to sugg est malignancy in either breast. There has been no suspicious interval change. IMPRESSION: 1. No mammographic evidence of malignancy. 2. Recommend routine screening mammography in one year. BI-RADS Category 1: Negative Reviewed, dictated and finalized at location B.
--- OUTSIDE RECORDS SUMMARY | 2024-12-19 09:57 | XMS_ITS | Clinical Summary ---
Author Organization [address] Address [address] [place] [address] [place] [address] Care Team Providers Care Nutritionist Public Health Name Role Phone Yu Alexandra Primary Care Provider + Allergies Active Allergy Reactions Criticality Noted Date Comments Metformin Stomach upset Low 04/19/2023 Medications ubidecarenone (coenzyme Q10) 100 mg tablet Take by mouth Active cetirizine (ZyrTEC) 10 mg chewable tablet Take 1 tablet (10 mg total) by mouth daily Active fluocinonide (LIDEX) 0.05 % cream Apply topically 2 (two) times a day as needed for irritation or rash 180 g 4 4 Active atorvastatin (LIPITOR) 20 mg tabletIndications: Hyperlipidemia, unspecified hyperlipidemia type Take 1 tablet (20 mg total) by mouth daily 90 tablet 3 4 Active Mounjaro 5 mg/0.5 mL pen injector injectionIndicatio ns:Type 2 diabetes mellitus without complication, without long-term current use of insulin (HCC) Inject 0.5 mL (5 mg total) under the skin every 7 days 2 mL 5 5 Active OneTouch Verio test strips stripIndications:T ype 2 diabetes mellitus without complication, without long-term current use of insulin (HCC) Use to check blood glucose 1-2 times daily as directed 100 each 1 5 Active ibuprofen (ADVIL,MOTRIN) 800 mg tabletIndications: Chronic bilateral low back pain without sciatica Take 1 tablet (800 mg total) by mouth every 8 (eight) hours as needed for pain 270 tablet 3 5 Active acetaminophen (TYLENOL) 500 mg tablet Take 2 tablets (1,000 mg total) by mouth every 6 (six) hours as needed for pain Takes every morning Active meclizine (ANTIVERT) 25 mg tablet Take 1 tablet (25 mg total) by mouth 3 (three) times a day as needed for dizziness 30 tablet 5 Active ondansetron ODT (ZOFRAN-ODT) 4 mg disintegrating tablet Take 1 tablet (4 mg total) by mouth every 8 (eight) hours as needed for nausea or vomiting 20 tablet 5 Active Active Problems Problem Noted Date Diagnosed Date Type 2 diabetes mellitus with hyperlipidemia Assessment & Plan (11/12/2024 4:43 PM CDT): Chronic, stable Well-controlled with last A1c 5.5 Reviewed labs from Jul 2024 at [place] - will be scanned/entered into chart. Blood sugar monitored two to three times a week. Discussed addition of ZIGGY-I, patient declines- she refuses lisinopril but may consider other renal protective agent in the future - Repeat labs in January. - Continue current blood sugar monitoring routine. - Mounjaro 5 mg weekly, atorvastatin 20 mg daily - Eye exam scheduled for next week - Foot exam in office today is normal, no signs of neuropathy Orders: Lipid panel; Future Hemoglobin A1c; Future Comprehensive metabolic panel; Future Vitamin B12; Future Vertigo 11/12/2024 Assessment & Plan (11/12/2024 4:43 PM CDT): Chronic issue Intermittent vertigo managed with meclizine and Zofran. Avoids medications that may lower blood pressure. - Continue meclizine 25 mg as needed. - Continue Zofran ODT 4 mg as needed. Allergic rhinitis 09/14/2018 Encounters Date Type Department Care Team Description 11/12/2024 2:30 PM CDT Office Visit [facility] Family Medicine [address] [phone] Yu Alexandra PA Type 2 diabetes mellitus with hyperlipidemia (HCC) (Primary Dx); Encounter for vitamin deficiency screening; Vertigo from Last 3 Months Immunizations Immunization Administration Dates Next Due COVID-19 mRNA (PFIZER) 0.3 m L (30 mcg) vaccine (12 years and up) 05/15/2023 Flucelvax Influenza Quad 05/02/2019 Influenza, Quadrivalent, Spl it, Preservative Free, Intramuscular 05/14/2023 Influenza, Unspecified 04/17/2024,2022,04/19/2023(Defer red: Patient Refused),04/05/2022,05/05/2020 MMR 09/01/2024 Pfizer SARS-CoV-2 Monovalent Vaccination (12+ Yrs) PURPLE 07/25/2020,07/04/2020 Pneumococcal Conjugate Pcv20 05/15/2023 Tdap 09/01/2024,10/15/2014 ZOSTER Recombinant 07/03/2019,05/02/2019 Surgical History Surgery Date Site/Laterality Comments PLANTAR FASCIA SURGERY LASIK 2006 SECTION 05/29/2003 09/03/2008 Medical History Medical History Date Comments Hx Other Medical Arrhythmias (bi geminy, freq PAC's, PSVT, NSVT, PVC Hx Other Medical Cardiomyopathy Hx Other Medical Arrhythmias (s/ p PVC ablation) Hypertension Hypertension Adiposity Obesity Allergic rhinitis Diabetes mellitus (HCC) 08/2022 Family History * Patient is adopted Medical History Relation Name Comments Heart attack Maternal Grandfather Mayur Arthritis Maternal Grandmother Fam Solano Bladder Cancer Mother Martina Fam Bladder Cance r; Cancer Mother Martina Fam Heart disease Mother Martina Fam Hyperlipidemia Mother Martina Fam Hypertension Mother Martina Fam Relation Name Status Comments Maternal Grandfather Mayur Alive Maternal Grandmother Fam Solano Alive Mother Martina Fam Alive Social History Tobacco Use Types Packs/Day Years Used Date Smoking Tobacco: Never Smokeless Tobacco: Never Tobacco Cessation:Counseling Given: Not Answered Alcohol Use Standard Drinks/Week Comments Yes 0 (1 standard drink = 0.6 oz pur e alcohol) AUDIT-C Answer Date Recorded Q1: How often do you have a drink containing alc ohol? Monthly or less 11/12/2024 Q2: How many drinks containi ng alcohol do you have on a typical day when you are drinking? 1 or 2 11/12/2024 Q3: How often do you have si x or more drinks on one occasion? Never 11/12/2024 PHQ-2 Answer Date Recorded PHQ-2 Total Score (If total score is 3 or more points, staff should administer the PHQ-9) 0 11/12/2024 Comments No Sex and Gender Information Value Date Recorded Sex Assigned at Not on file Legal Sex Female 10:53 PM AIRBORNE OPERATIONS SUPERINTENDENT Gender Identity Female 05/16/2023 9:11 AM CDT Sexual Orientation Not on file Obstetrics History Last Filed Vital Signs Vital Sign Reading Time Taken Comments Blood Pressure 120/68 11/12/2024 2:32 PM CDT Pulse 80 11/12/2024 2:32 PM CDT Temperature 36.7 C (98 F) 11/12/2024 2:32 PM CDT Respiratory Rate 16 11/12/2024 2:32 PM CDT Oxygen Saturation 99% 11/12/2024 2:32 PM CDT Inhaled Oxygen Concentration - - Weight 84 kg (185 lb 1.6 oz) 11/12/2024 2:32 PM CDT Height 177.8 cm (5' 10) 11/12/2024 2:32 PM CDT Body Mass Index 26.56 11/12/2024 2:32 PM CDT Plan of Treatment Health Maintenance Due Date Last Done Comments Hepatitis C Screening 1965 Hepatitis B Screening 1985 Covid-19 Vaccine (2023- 5 season) 2024 05/15/2023, 03/31/2022, 04/23/2021, Additional history exists Dilated Eye Exam 10/22/2024 10/23/2023, 10/17/2022 Breast Cancer Screening-Mammogram 12/18/2024 12/19/2023, 12/22/2021, 08/31/2020 Hemoglobin A1C 01/28/2025 07/31/2024, 03/17, 09/08/2022 Albumin Creatinine Ratio, Urine 07/31/2025 Lipid Panel 07/31/2025 07/31/2024, 08/30/2022 eGFR 08/01/2025 08/01/2024, 03/27/2023 Regular Well Visit/Exam 18-64 08/05/2025, 08/05/2024, 09/04/2023, Additional history exists Depression Screening 11/12/2025 11/12/2024, 08/05/2024, 09/04/2023, Additional history exists Foot Exam 11/12/2025 11/12/2024, 07/18, 08/05/2024, Additional history exists Cervical Cancer Screening 09/04/2026 09/04/2023, Colon Cancer Screening-Colonoscopy 10/31/2029 10/31/2024, 03/20/2019, 03/20/2014 DTaP/Tdap/Td Vaccine (3 - Td or Tdap) 09/01/2034 09/01/2024, 10/15/2014 Zoster Vaccine Completed 07/03/2019, 05/02/2019 Pneumococcal vaccine <65 Completed 05/15/2023 Influenza Vaccine Completed 04/17/2024, , 05/14/2023, Additional history exists Colon Cancer Screening-CT Colonography Discontinued 10/31/2024, 03/20/2019, 03/20/2014 Colon Cancer Screening-DNA Stool Discontinued 10/31/2024, 03/20/2019, 03/20/2014 Colon Cancer Screening-FIT Discontinued 10/31, 03/20/2019, 03/20/2014 Colon Cancer Screening-Sigmoidoscopy Discontinued 10/31/2024, 03/20/2019, 03/20/2014 Procedures Procedure Name Priority Date/Time Associated Diagnosis Comments COLONOSCOPY Routine 10/31/2024 12:45 PM CDT COMPREHENSIVE METABOLIC PANEL Routine 08/01/2024 2:40 PM AIRBORNE OPER[employer] SUPERINTENDENT ALBUMIN CREATININE RATIO, URINE Routine 07/31/2024 7:32 AM AIRBORNE OPERATIONS SUPERINTENDENT HEMOGLOBIN A1C Routine 07/31/2024 7:31 AM [employer]BORNE OPERATIONS SUPERINTENDENT Type 2 diabetes mellitus with hyperlipidemia (HCC) LIPID PANEL Routine 07/31/2024 7:31 AM [employer]BORNE OPERATIONS SUPERINTENDENT Type 2 diabetes mellitus with hyperlipidemia (HCC) MAMMOGRAPHY Routine 12/19/2023 DIABETES EYE EXAM Routine 10/23/2023 PAP AND HPV, REFLEX TO HPV GENOTYPES Routine 09/04/2023 8:32 AM AIRBORNE OPERATIONS SUPERINTENDENT Encounter for well woman exam with routine gynecological exam Screening for HPV (human papillomavirus) from Last 3 Months or Most Recently Relevant to Health Maintenance Results * Colonoscopy (10/31/2024 12:45 PM CDT) Anatomical Region Laterality Modality Other Historical Provider ENDOSCOPY PROCEDURES Lana l Result * (ABNORMAL) Comprehensive metabolic panel (08/01/2024 2:40 PM [employer]BORNE [employer]PER[employer] SUPERINTENDENT) SCRIBED Sodium 139 137 - 145 mmol/L [...] - EXTERNAL LAB SCRIBED eGFR in NonAfrican Senegalese >60 - - - EXTERNAL LAB Blood Historical Provider LAB BLOOD ORDERABLES Lana l Result EXTERNAL LAB * HM ALBUMIN CREATININE RATIO, URINE (07/31/2024 7:32 AM AIRBORNE OPERATIONS SUPERINTENDENT) SCRIBED HM ALBUMIN CREATININE RATIO, URINE 21.0 EXTERNAL LAB 07/31/2024 7:32 AM [employer]BORNE OPERATIONS SUPERINTENDENT Historical Provider HEALTH MAINTENANCE Final Result Performing Organization Address City/[facility] Co de Phone Number EXTERNAL LAB * Hemoglobin A1c (07/31/2024 7:31 AM AIRBORNE OPERATIONS SUPERINTENDENT) SCRIBED Hemoglobin A1c 5.5 4.0 - 5.6 % EXTERNAL LAB Blood 07/31/2024 7:31 AM [employer]BORNE OPERATIONS SUPERINTENDENT Yu CHAVARRIA LAB BLOOD ORDERABLES Fin al Result Performing Organization Address [facility] Co de Phone Number EXTERNAL LAB * Lipid panel (07/31/2024 7:31 AM AIRBORNE OPERATIONS SUPERINTENDENT) SCRIBED Cholesterol, Total 143 30 - 199 mg/dL EXTERNAL LAB SCRIBED Triglycerides 102 <=149 mg/dL EXTERNAL LAB SCRIBED HDL 44 >=40 mg/dL EXTERNAL LAB SCRIBED LDL 78 <=129 mg/dL EXTERNAL LAB Scribed Non-HDL Cholesterol 0 NONE mg/dL EXTERNAL LAB SCRIBED Total Cholesterol/HDL Ratio 0 NONE EXTERNAL LAB Blood 07/31/2024 7:31 AM [employer]BORNE OPERATIONS SUPERINTENDENT Yu CHAVARRIA LAB BLOOD ORDERABLES Fin al Result Performing Organization Address City/[facility] Co de Phone Number EXTERNAL LAB * HM MAMMOGRAPHY (12/19/2023) Mammography Normal Result [facility] Historical Provider HEALTH MAINTENANCE Final Result * HM DIABETES EYE EXAM (10/23/2023) SCRIBED DIABETIC DILATED EYE EXAM Normal us Historical Provider HEALTH MAINTENANCE Final Result * Pap and HPV, reflex to HPV Genotypes (09/04/2023 8:32 AM AIRBORNE OPERATIONS SUPERINTENDENT) CLINICAL INFORMATION: [facility] Comment: Postmenopausal WELL WOMAN EXAM LMP [facility] Comment:POSTMENOPAUSAL Previous Pap [facility] Comment:NONE GIVEN Prev. Bx [facility] Comment:NONE GIVEN SOURCE: [facility] Comment:Cervix, Endocervix Pap, specimen adequacy [facility] Comment: Satisfactory for evaluation. Endocervical/transformation zone component present. HPV interp [facility] Comment: Cytology Results: Negative for intraepithelial lesion or malignancy. COMMENTS [facility] Comment: This Pap test has been evaluated with computer assisted technology. Product Support Technician [facility] Comment: CONRADO GODWIN(ASCP) CT Screening Location: [place] [address] [address] JODI Tran [id number] Comment [facility] Comment: EXPLANATORY NOTE: The Pap is a [...] High Risk E6/E7 Not Detected NOT DETECTED [facility] /Néstor sosa [place] Comment: Not Detected High Risk HPV types (16,18,31,33,35,39,45,51,52, 56,58,59,66,68) were not detected. Other HPV types which cause anogenital lesions may be present. The significance of the other types of HPV in malignant processes has not been established. Methodology: Real Time PCR Thin prep 09/04/2023 8:32 AM [employer]BORNE OPERATIONS SUPERINTENDENT 09/06/2023 12:53 PM [employer]BORNE OPERATIONS SUPERINTENDENT Augustine Ledesma MD LAB CYTOLOGY ORDERAB LES Final Result [facility] [address] [address]ouse [phone] [facility] [address] [place] [address] from Last 3 Months or Most Recently Relevant to Health Maintenance Insurance [facility] Care Teams Nutritionist Public Health Relationship Specialty Start Date End Date Yu Alexandra PA [address] [place] [address] PCP - General Family Medicine 11/12/24
--- OUTSIDE RECORDS SUMMARY | 2024-12-19 09:57 | XMS_ITS | Referral Summary ---
Author Organization [address] Address [address] [place] [address] Care Team Providers Care Parts Salesman Name Role Phone Yu Alexandra Primary Care Provider + Encounters Date Type Department Care Team Description 11/12/2024 2:30 PM CDT Office Visit [facility] Family Medicine [address] [place] [phone] Yu Alexandra PA Type 2 diabetes mellitus with hyperlipidemia (HCC) (Primary Dx); Encounter for vitamin deficiency screening; Vertigo from Last 3 Months Allergies Active Allergy [...] complication, without long-term current use of insulin ([facility]) Inject 0.5 mL (5 mg total) under the skin every 7 days 2 mL 5 5 Active OneTouch Verio test strips stripIndications:T ype 2 diabetes mellitus without complication, without long-term current use of insulin ([facility]) Use to check blood glucose 1-2 times [...] 5.5 Reviewed labs from Jul 2024 at [place] - will be scanned/entered into chart. Blood [...] 4 mg as needed. Allergic rhinitis 09/14/2018 Immunizations Immunization Administration Dates Next Due COVID-19 mRNA (EVRST) 0.3 m L (30 mcg) vaccine (12 years and up) 05/15/2023 Flucelvax Influenza Quad 05/02/2019 Influenza, Quadrivalent, Spl it, Preservative Free, Intramuscular 05/14/2023 Influenza, Unspecified 04/17/2024,2022,04/19/2023(Defer red: Patient Refused),04/05/2022,05/05/2020 MMR 09/01/2024 Pfizer SARS-CoV-2 Monovalent Vaccination (12+ Yrs) PURPLE 07/25/2020,07/04/2020 Pneumococcal Conjugate Pcv20 05/15/2023 Tdap 09/01/2024,10/15/2014 ZOSTER Recombinant 07/03/2019,05/02/2019 Social History Tobacco Use [...] on file Legal Sex Female 10:53 PM PUTTIER Gender Identity Female 05/16/2023 9:11 AM CDT [...] 11/12/2024 2:32 PM CDT Plan of Treatment Not on file Procedures Procedure Name Priority Date/Time Associated Diagnosis Comments COLONOSCOPY Routine 10/31/2024 12:45 PM CDT COMPREHENSIVE METABOLIC PANEL Routine 08/01/2024 2:40 PM PUTTIER ALBUMIN CREATININE RATIO, URINE Routine 07/31/2024 7:32 AM PUTTIER HEMOGLOBIN A1C Routine 07/31/2024 7:31 AM PUTTIER Type 2 diabetes mellitus with hyperlipidemia (HCC) LIPID PANEL Routine 07/31/2024 7:31 AM PUTTIER Type 2 diabetes mellitus with hyperlipidemia (HCC) MAMMOGRAPHY Routine 12/19/2023 DIABETES EYE EXAM Routine 10/23/2023 PAP AND HPV, REFLEX TO HPV GENOTYPES Routine 09/04/2023 8:32 AM PUTTIER Encounter for well woman exam with routine gynecological exam Screening for HPV (human papillomavirus) from Last 3 Months or Most Recently Relevant to Health Maintenance Results * Colonoscopy (10/31/2024 12:45 PM CDT) Anatomical Region Laterality Modality Other us Historical Provider ENDOSCOPY PROCEDURES Lana l Result * (ABNORMAL) Comprehensive metabolic panel (08/01/2024 2:40 PM PUTTIER) SCRIBED Sodium 139 137 - 145 mmol/L [...] - EXTERNAL LAB SCRIBED eGFR in NonAfrican Rwandan >60 - - - EXTERNAL LAB Blood Historical Provider LAB BLOOD ORDERABLES Lana l Result Performing Organization Address [facility]/ZIP Co de Phone Number EXTERNAL LAB * HM ALBUMIN CREATININE RATIO, URINE (07/31/2024 7:32 AM PUTTIER) SCRIBED HM ALBUMIN CREATININE RATIO, URINE 21.0 EXTERNAL LAB 07/31/2024 7:32 AM PUTTIER Historical Provider HEALTH MAINTENANCE Final Result EXTERNAL LAB * Hemoglobin A1c (07/31/2024 7:31 AM PUTTIER) SCRIBED Hemoglobin A1c 5.5 4.0 - 5.6 % EXTERNAL LAB Blood 07/31/2024 7:31 AM PUTTIER Yu CHAVARRIA LAB BLOOD ORDERABLES Fin al Result EXTERNAL LAB * Lipid panel (07/31/2024 7:31 AM PUTTIER) SCRIBED Cholesterol, Total 143 30 - 199 mg/dL EXTERNAL LAB SCRIBED Triglycerides 102 <=149 mg/dL EXTERNAL LAB SCRIBED HDL 44 >=40 mg/dL EXTERNAL LAB SCRIBED LDL 78 <=129 mg/dL EXTERNAL LAB Scribed Non-HDL Cholesterol 0 NONE mg/dL EXTERNAL LAB SCRIBED Total Cholesterol/HDL Ratio 0 NONE EXTERNAL LAB Blood 07/31/2024 7:31 AM PUTTIER Yu CHAVARRIA LAB BLOOD ORDERABLES Fin al Result Performing Organization Address City/[facility]/ZIP Co de Phone Number EXTERNAL LAB * HM MAMMOGRAPHY (12/19/2023) Mammography Normal Historical Provider MD HEALTH MAINTENANCE Final Result * DIABETES EYE EXAM (10/23/2023) SCRIBED DIABETIC DILATED EYE EXAM Normal Historical Provider MD HEALTH MAINTENANCE Final Result * Pap and HPV, reflex to HPV Genotypes (09/04/2023 8:32 AM PUTTIER) CLINICAL INFORMATION: [facility] [employer] [facility] Comment: Postmenopausal WELL WOMAN EXAM LMP [facility] [employer] [facility] Comment:POSTMENOPAUSAL Previous Pap [facility] [employer] [facility] Comment:NONE GIVEN Prev. Bx [facility] Comment:NONE GIVEN SOURCE: [facility] Comment:Cervix, Endocervix Pap, specimen adequacy [facility] [employer] [facility] Comment: Satisfactory for evaluation. Endocervical/transformation zone component present. HPV interp [facility] [employer] [facility] Comment: Cytology Results: Negative for intraepithelial lesion or malignancy. COMMENTS [facility] [employer] [facility] Comment: This Pap test has been evaluated with computer assisted technology. Last Repairer Helper [facility] [employer] [facility] Comment: JAF, CT(ASCP) CT Screening Location: [place] [address] [address] JODI Tran [id number] Comment [facility] [employer] [facility] Comment: EXPLANATORY NOTE: The Pap is [...] High Risk E6/E7 Not Detected NOT DETECTED [employer] /Néstor [facility]pa[facility] schoolm[facility] [place] Comment: Not Detected High Risk HPV types (16,18,31,33,35,39,45,51,52, 56,58,59,66,68) were not detected. Other HPV types which cause anogenital lesions may be present. The significance of the other types of HPV in malignant processes has not been established. Methodology: Real Time PCR Thin prep 09/04/2023 8:32 AM PUTTIER 09/06/2023 12:53 PM PUTTIER Augustine Ledesma MD LAB CYTOLOGY ORDERAB LES Final Result Performing Organization Address City/State/[facility] Co de Phone Number [facility] [address] [place] [address] [facility] [employer]/[facility] [address] [address] from Last 3 Months or Most Recently Relevant to Health Maintenance Insurance [facility] HMO/PPO Address: [facility] [address] [place] [address] [facility] HMO/PPO Address: [address] [address] Care Teams Parts Salesman Relationship Specialty Start Date End Date Yu Alexandra PA [address] [place] [address] PCP - General Family Medicine 11/12/24
== END 2024-12-19 09:15 | disposition home or self-care (01) ==
LOC: ANHIMG 09:17
PROVIDERS: PCP Family Medicine; Visit Provider Family Medicine
DX: Z12.31 Encounter for screening mammogram for malignant neoplasm of breast (principal)
CPT/HCPCS: 77063; 77067

== ENCOUNTER 2025-02-01 08:22 | Outpatient (CLI) | payer OTHER, SELFPAY ==
--- OUTSIDE RECORDS SUMMARY | 2025-02-01 08:34 | XMS_ITS | Clinical Summary ---
Author Organization [facility] Address [address] [place] [address] Care Team Providers Care Supervisor Electronics Inspection Name Role Phone Unavailable Primary Care Provider [...] Screening with HPV 1997 Mammogram Screening 2007 Pneumococcal Vaccine: 50+ Ye ars (1 of 1 - PCV) 2017 Zoster Vaccines (1 of 2) 2017 COVID-19 [...]
--- OUTSIDE RECORDS SUMMARY | 2025-02-01 08:34 | XMS_ITS | Referral Summary ---
Author Organization [address] Address [address] [place] [phone] Care Team Providers Care Spot Cleaner Name Role Phone Yu Alexandra Primary Care Provider + Encounters Date Type Department Care Team Description 11/12/2024 2:30 PM CDT Office Visit [facility] Family Medicine [address] [place] [phone] Yu Alexandra PA Type 2 diabetes [...] or rash 180 g 4 4 Active Mounjaro 5 mg/0.5 mL pen [...] nausea or vomiting 20 tablet 5 Active atorvastatin (LIPITOR) 20 mg tabletIndications: Hyperlipidemia, unspecified hyperlipidemia type TAKE 1 TABLET BY MOUTH EVERY DAY 100 tablet 1 5 Active Active Problems Problem Noted Date Diagnosed Date Type 2 diabetes mellitus with hyperlipidemia Assessment & Plan (11/12/2024 4:43 PM CDT): Chronic, stable Well-controlled with last A1c 5.5 Reviewed labs from Jul 2024 at [place] - will be scanned/entered into chart. Blood [...] Immunization Administration Dates Next Due COVID-19 mRNA (LiveBid) 0.3 m L (30 mcg) vaccine (12 [...] on file Legal Sex Female 10:53 PM AIRLINE TICKET AGENT Gender Identity Female 05/16/2023 9:11 AM CDT [...] Procedure Name Priority Date/Time Associated Diagnosis Comments MAMMOGRAPHY Routine 12/19/2024 2:12 PM CDT COLONOSCOPY Routine 10/31/2024 12:45 PM CDT COMPREHENSIVE METABOLIC PANEL Routine 08/01/2024 2:40 PM AIRLINE TICKET AGENT ALBUMIN CREATININE RATIO, URINE Routine 07/31/2024 7:32 AM AIRLINE TICKET AGENT HEMOGLOBIN A1C Routine 07/31/2024 7:31 AM AIRLINE TICKET AGENT Type 2 diabetes mellitus with hyperlipidemia (HCC) LIPID PANEL Routine 07/31/2024 7:31 AM AIRLINE TICKET AGENT Type 2 diabetes mellitus with hyperlipidemia (HCC) DIABETES EYE EXAM Routine 10/23/2023 PAP AND HPV, REFLEX TO HPV GENOTYPES Routine 09/04/2023 8:32 AM AIRLINE TICKET AGENT Encounter for well woman exam with routine gynecological exam Screening for HPV (human papillomavirus) from Last 3 Months or Most Recently Relevant to Health Maintenance Results * HM MAMMOGRAPHY (12/19/2024 2:12 PM CDT) us Historical Provider HEALTH MAINTENANCE Final Result * Colonoscopy (10/31/2024 12:45 PM CDT) Anatomical Region Laterality Modality Other us Historical Provider ENDOSCOPY PROCEDURES Lana l Result * (ABNORMAL) Comprehensive metabolic panel (08/01/2024 2:40 PM AIRLINE TICKET AGENT) SCRIBED Sodium 139 137 - 145 mmol/L [...] - EXTERNAL LAB SCRIBED eGFR in NonAfrican Vincentian >60 - - - EXTERNAL LAB Blood Historical Provider LAB BLOOD ORDERABLES Lana l Result EXTERNAL LAB * HM ALBUMIN CREATININE RATIO, URINE (07/31/2024 7:32 AM AIRLINE TICKET AGENT) SCRIBED HM ALBUMIN CREATININE RATIO, URINE 21.0 EXTERNAL LAB 07/31/2024 7:32 AM AIRLINE TICKET AGENT Historical Provider HEALTH MAINTENANCE Final Result EXTERNAL LAB * Hemoglobin A1c (07/31/2024 7:31 AM AIRLINE TICKET AGENT) SCRIBED Hemoglobin A1c 5.5 4.0 - 5.6 % EXTERNAL LAB Blood 07/31/2024 7:31 AM AIRLINE TICKET AGENT Yu CHAVARRIA LAB BLOOD ORDERABLES Fin al Result EXTERNAL LAB * Lipid panel (07/31/2024 7:31 AM AIRLINE TICKET AGENT) SCRIBED Cholesterol, Total 143 30 - 199 mg/dL EXTERNAL LAB SCRIBED Triglycerides 102 <=149 mg/dL EXTERNAL LAB SCRIBED HDL 44 >=40 mg/dL EXTERNAL LAB SCRIBED LDL 78 <=129 mg/dL EXTERNAL LAB Scribed Non-HDL Cholesterol 0 NONE mg/dL EXTERNAL LAB SCRIBED Total Cholesterol/HDL Ratio 0 NONE EXTERNAL LAB Blood 07/31/2024 7:31 AM AIRLINE TICKET AGENT Yu CHAVARRIA LAB BLOOD ORDERABLES Fin al Result Performing Organization Address City/[facility]/ZIP Co de Phone Number EXTERNAL LAB * HM DIABETES EYE EXAM (10/23/2023) SCRIBED DIABETIC DILATED EYE EXAM Normal Historical Provider MD HEALTH MAINTENANCE Final Result * Pap and HPV, reflex to HPV Genotypes (09/04/2023 8:32 AM AIRLINE TICKET AGENT) CLINICAL INFORMATION: [facility] Comment: Postmenopausal WELL WOMAN EXAM LMP [facility] Comment:POSTMENOPAUSAL Previous Pap [facility] Comment:NONE GIVEN Prev. Bx [facility] Comment:NONE GIVEN SOURCE: [facility] Comment:Cervix, Endocervix Pap, specimen adequacy [facility] Comment: Satisfactory for evaluation. Endocervical/transformation zone component present. HPV interp [facility] Comment: Cytology Results: Negative for intraepithelial lesion or malignancy. COMMENTS [facility] Comment: This Pap test has been evaluated with computer assisted technology. Agile Coach [facility] Comment: CONRADO GODWIN(ASCP) CT Screening Location: [place] [address] Administration JODI Tran [facility] Comment [facility] Comment: EXPLANATORY NOTE: The Pap is [...] High Risk E6/E7 Not Detected NOT DETECTED [place] /Néstor Hunt [facility] Comment: Not Detected High Risk HPV types (16,18,31,33,35,39,45,51,52, 56,58,59,66,68) were not detected. Other HPV types which cause anogenital lesions may be present. The significance of the other types of HPV in malignant processes has not been established. Methodology: Real Time PCR Thin prep 09/04/2023 8:32 AM AIRLINE TICKET AGENT 09/06/2023 12:53 PM AIRLINE TICKET AGENT Augustine Ledesma MD LAB CYTOLOGY ORDERAB LES Final Result Performing Organization Address City/State/[facility] Co va Phone Number [facility] [address] [place] [address] [place]/[facility]or [facility] [address] [facility] [place] [address] from Last 3 Months or Most Recently Relevant to Health Maintenance Insurance [facility] H[facility]/PPO Address: [address] [address] [facility] HMO/PPO Address: [address] [address] Care Teams Spot Cleaner Relationship Specialty Start Date End Date Yu lAexandra PA [address] [place] [address] PCP - General Family Medicine 11/12/24
--- OUTSIDE RECORDS SUMMARY | 2025-02-01 08:34 | XMS_ITS | Clinical Summary ---
Author Organization [address] Address [address] [place] [address] [place] [address] Care Team Providers Care Envelope Maker Name Role Phone Yu Alexandra Primary Care [...] day as needed for dizziness 30 tablet Active ondansetron ODT (ZOFRAN-ODT) 4 mg disintegrating [...] 5.5 Reviewed labs from Jul 2024 at [place] - will be scanned/entered into chart. Blood [...] Description 11/12/2024 2:30 PM CDT Office Visit [facility] Family Medicine [address] [place] [phone] Yu Alexandra PA Type 2 diabetes [...] on file Legal Sex Female 10:53 PM INVENTORY CHECKER Gender Identity Female 05/16/2023 9:11 AM CDT [...] 1965 Hepatitis B Screening 1985 Covid-19 Vaccine (2023-08 5 season) 2024 05/15/2023, 03/31/2022, 04/23/2021, Additional history exists Dilated Eye Exam 10/22/2024 10/23/2023, 10/17/2022 Hemoglobin A1C 01/28/2025 07/31/2024, 03/17, 09/08/2022 Influenza Vaccine (#1) 2025 , 05/14/2023, 05/14/2023, Additional history exists Albumin Creatinine Ratio, Urine 07/31/2025 Lipid Panel 07/31/2025 07/31/2024, 08/30/2022 eGFR 08/01/2025 08/01/2024, 03/27/2023 Regular Well Visit/Exam 18-64 08/05/2025, 08/05/2024, 09/04/2023, Additional history exists Depression Screening 11/12/2025 11/12/2024, 08/05/2024, 09/04/2023, Additional history exists Foot Exam 11/12/2025 11/12/2024, 07/18, 08/05/2024, Additional history exists Breast Cancer Screening-Mammogram 12/19/2025 12/19/2024, 12/19/2023, 12/22/2021, Additional history exists Cervical Cancer Screening 09/04/2026 09/04/2023, Colon Cancer Screening-Colonoscopy 10/31/2029 10/31/2024, 03/20/2019, 03/20/2014 DTaP/Tdap/Td Vaccine (3 - Td or Tdap) 09/01/2034 09/01/2024, 10/15/2014 Zoster Vaccine Completed 07/03/2019, 05/02/2019 Pneumococcal vaccine <65 Completed 05/15/2023 Colon Cancer Screening-CT Colonography Discontinued 10/31/2024, 03/20/2019, 03/20/2014 Colon Cancer Screening-DNA Stool Discontinued 10/31/2024, 03/20/2019, 03/20/2014 Colon Cancer Screening-FIT Discontinued 10/31, 03/20/2019, 03/20/2014 Colon Cancer Screening-Sigmoidoscopy Discontinued 10/31/2024, 03/20/2019, 03/20/2014 Procedures Procedure Name Priority Date/Time Associated Diagnosis Comments MAMMOGRAPHY Routine 12/19/2024 2:12 PM CDT COLONOSCOPY Routine 10/31/2024 12:45 PM CDT COMPREHENSIVE METABOLIC PANEL Routine 08/01/2024 2:40 PM INVENTORY CHECKER ALBUMIN CREATININE RATIO, URINE Routine 07/31/2024 7:32 AM INVENTORY CHECKER HEMOGLOBIN A1C Routine 07/31/2024 7:31 AM INVENTORY CHECKER Type 2 diabetes mellitus with hyperlipidemia (HCC) LIPID PANEL Routine 07/31/2024 7:31 AM INVENTORY CHECKER Type 2 diabetes mellitus with hyperlipidemia (HCC) DIABETES EYE EXAM Routine 10/23/2023 PAP AND HPV, REFLEX TO HPV GENOTYPES Routine 09/04/2023 8:32 AM INVENTORY CHECKER Encounter for well woman exam with routine gynecological exam Screening for HPV (human papillomavirus) from Last 3 Months or Most Recently Relevant to Health Maintenance Results * MAMMOGRAPHY (12/19/2024 2:12 PM CDT) us Historical Provider MD HEALTH MAINTENANCE Final Result * Colonoscopy (10/31/2024 12:45 PM CDT) Anatomical Region Laterality Modality Other us Historical Provider MD ENDOSCOPY PROCEDURES Lana l Result * (ABNORMAL) Comprehensive metabolic panel (08/01/2024 2:40 PM INVENTORY CHECKER) SCRIBED Sodium 139 137 - 145 mmol/L [...] - EXTERNAL LAB SCRIBED eGFR in NonAfrican Slovenian >60 - - - EXTERNAL LAB Blood Result [facility] Historical Provider LAB BLOOD ORDERABLES Lana l Result Performing Organization Address City/[facility]/ZIP Co de Phone Number EXTERNAL LAB * HM ALBUMIN CREATININE RATIO, URINE (07/31/2024 7:32 AM INVENTORY CHECKER) SCRIBED HM ALBUMIN CREATININE RATIO, URINE 21.0 EXTERNAL LAB 07/31/2024 7:32 AM INVENTORY CHECKER Historical Provider HEALTH MAINTENANCE Final Result Performing Organization Address [facility] Co de Phone Number EXTERNAL LAB * Hemoglobin A1c (07/31/2024 7:31 AM INVENTORY CHECKER) SCRIBED Hemoglobin A1c 5.5 4.0 - 5.6 % EXTERNAL LAB Blood 07/31/2024 7:31 AM INVENTORY CHECKER Yu CHAVARRIA LAB BLOOD ORDERABLES Fin al Result Performing Organization Address [facility] Co de Phone Number EXTERNAL LAB * Lipid panel (07/31/2024 7:31 AM INVENTORY CHECKER) SCRIBED Cholesterol, Total 143 30 - 199 mg/dL EXTERNAL LAB SCRIBED Triglycerides 102 <=149 mg/dL EXTERNAL LAB SCRIBED HDL 44 >=40 mg/dL EXTERNAL LAB SCRIBED LDL 78 <=129 mg/dL EXTERNAL LAB Scribed Non-HDL Cholesterol 0 NONE mg/dL EXTERNAL LAB SCRIBED Total Cholesterol/HDL Ratio 0 NONE EXTERNAL LAB Blood 07/31/2024 7:31 AM INVENTORY CHECKER Yu CHAVARRIA LAB BLOOD ORDERABLES Fin al Result Performing Organization Address City/[facility] Co de Phone Number EXTERNAL LAB * HM DIABETES EYE EXAM (10/23/2023) SCRIBED DIABETIC DILATED EYE EXAM Normal Historical Provider HEALTH MAINTENANCE Final Result * Pap and HPV, reflex to HPV Genotypes (09/04/2023 8:32 AM INVENTORY CHECKER) CLINICAL INFORMATION: [facility] Comment: Postmenopausal WELL WOMAN EXAM LMP [facility] Comment:POSTMENOPAUSAL Previous Pap [facility] Comment:NONE GIVEN Prev. Bx [facility] Comment:NONE GIVEN SOURCE: [facility] Comment:Cervix, Endocervix Pap, specimen adequacy [facility] Comment: Satisfactory for evaluation. Endocervical/transformation zone component present. HPV interp [facility] Comment: Cytology Results: Negative for intraepithelial lesion or malignancy. COMMENTS [facility] Comment: This Pap test has been evaluated with computer assisted technology. Needle Straightener [facility] Comment: CONRADO GODWIN(ASCP) CT Screening Location: [place] [address] Administration JODI Tran [id number] Comment [facility] Comment: EXPLANATORY NOTE: The Pap is a [...] Risk E6/E7 Not Detected NOT DETECTED [facility] /Néstor ANDERS Comment: Not Detected High Risk HPV types (16,18,31,33,35,39,45,51,52, 56,58,59,66,68) were not detected. Other HPV types which cause anogenital lesions may be present. The significance of the other types of HPV in malignant processes has not been established. Methodology: Real Time PCR Thin prep 09/04/2023 8:32 AM INVENTORY CHECKER 09/06/2023 12:53 PM INVENTORY CHECKER Augustine Ledesma MD LAB CYTOLOGY ORDERAB LES Final Result [place] [address] [address] JODI Rouse [phone] [facility]/[place] [address] [facility] [place] [address] from Last 3 Months or Most Recently Relevant to Health Maintenance Insurance [facility] Care Teams Envelope Maker Relationship Specialty Start Date End Date Yu Alexandra PA [address] [place] [address] PCP - General Family Medicine 11/12/24
[2025-02-01 10:18] LABS: Alanine Aminotransferase 17 U/L (6-35); Albumin Level 4.6 g/dL (3.5-5.1); Alkaline Phosphatase 71 U/L (38-126); Anion Gap 10 mmol/L (4-12); Aspartate Amino Transferase 25 U/L (14-36); Bilirubin,Total 0.7 mg/dL (0.2-1.3); Blood Urea Nitrogen 12 mg/dL (7-17); Calcium 9.6 mg/dL (8.4-10.2); Carbon Dioxide 23 mmol/L (22-30); Chloride 108 mmol/L (98-107); Estimated Glomerular Filt Rate > 60; Glucose 106 mg/dL (65-110); Potassium 4.3 mmol/L (3.4-5.0); Sodium 141 mmol/L (137-145); Total Protein 7.5 g/dL (6.3-8.2)
[2025-02-01 11:13] LABS: Vitamin B12 299.0 pg/mL (239-931)
== END 2025-02-01 08:23 | disposition home or self-care (01) ==
PROVIDERS: PCP Family Medicine
DX: E11.69 Type 2 diabetes mellitus with other specified complication (principal); E78.5 Hyperlipidemia, unspecified; Z13.21 Encounter for screening for nutritional disorder
CPT/HCPCS: 36415; 80053; 82607

== ENCOUNTER 2025-02-22 07:05 | Outpatient (CLI) | payer OTHER, SELFPAY ==
--- OUTSIDE RECORDS SUMMARY | 2025-02-22 07:10 | XMS_ITS | Clinical Summary ---
Author Organization [address] Address [address] [place] [address] [place] [address] Care Team Providers Care Weld Lay Out Worker Name Role Phone Yu Alexandra Primary Care [...] 5.5 Reviewed labs from Jul 2024 at [place] - will be scanned/entered into chart. Blood [...] Encounters Date Type Department Care Team Description 02/06/2025 Results Follow-Up [facility] Family Medicine [address] [phone] Yu Alexandra PA Comprehensive metabolic panel, Vitamin B12 02/06/[address] [facility] Family Medicine [address] [phone] Yu Alexandra PA Lab Results (Results and missing labs from [place]) from Last 3 Months Immunizations Immunization Administration [...] on file Legal Sex Female 10:53 PM LEAD CUSTOMER SERVICE REPRESENTATIVE Gender Identity Female 05/16/2023 9:11 AM CDT [...] Urine 07/31/2025 Lipid Panel 07/31/2025 07/31/2024, 08/30/2022 Regular Well Visit/Exam 18-64 08/05/2025, 08/05/2024, 09/04/2023, Additional history exists Depression Screening 11/12/2025 11/12/2024, 08/05/2024, 09/04/2023, Additional history exists Foot Exam 11/12/2025 11/12/2024, 07/18, 08/05/2024, Additional history exists Breast Cancer Screening-Mammogram 12/19/2025 12/19/2024, 12/19/2023, 12/22/2021, Additional history exists eGFR 02/01/2026 02/01/2025, 07/17, 03/27/2023 Cervical Cancer Screening 09/04/2026 09/04/2023, Colon Cancer [...] Associated Diagnosis Comments COMPREHENSIVE METABOLIC PANEL Routine 02/01/2025 8:00 AM CDT Type 2 diabetes mellitus with hyperlipidemia (HCC) VITAMIN B12 Routine 02/01/2025 Encounter for vitamin deficiency screening Type 2 diabetes mellitus with hyperlipidemia (HCC) HM MAMMOGRAPHY Routine 12/19/2024 2:12 PM CDT COLONOSCOPY Routine 10/31/2024 12:45 PM CDT HM ALBUMIN CREATININE RATIO, URINE Routine 07/31/2024 7:32 AM LEAD CUSTOMER SERVICE REPRESENTATIVE HEMOGLOBIN A1C Routine 07/31/2024 7:31 AM LEAD CUSTOMER SERVICE REPRESENTATIVE Type 2 diabetes mellitus with hyperlipidemia (HCC) LIPID PANEL Routine 07/31/2024 7:31 AM LEAD CUSTOMER SERVICE REPRESENTATIVE Type 2 diabetes mellitus with hyperlipidemia (HCC) HM DIABETES EYE EXAM Routine 10/23/2023 PAP AND HPV, REFLEX TO HPV GENOTYPES Routine 09/04/2023 8:32 AM LEAD CUSTOMER SERVICE REPRESENTATIVE Encounter for well woman exam with routine gynecological exam Screening for HPV (human papillomavirus) from Last 3 Months or Most Recently Relevant to Health Maintenance Results * (ABNORMAL) Comprehensive metabolic panel (02/01/2025 8:00 AM CDT) SCRIBED Sodium 141 137 - 145 mmol/L EXTERNAL LAB SCRIBED Potassium 4.3 3.4 - 5 mmol/L EXTERNAL LAB SCRIBED Chloride 108(A) 98 - 107 mmol/L EXTERNAL LAB SCRIBED Carbon Dioxide 23 22 - 30 mmol/L EXTERNAL LAB SCRIBED Anion Gap 10 4 - 12 mmol/L EXTERNAL LAB SCRIBED Urea Nitrogen (BUN) 12 7 - 17 mg/dl EXTERNAL LAB SCRIBED Creatinine 0.68(A) 0.7 - 1.0 mg/dl EXTERNAL LAB SCRIBED Glucose 106 65 - 110 mg/dl EXTERNAL LAB SCRIBED Calcium 9.6 8.4 - 10.2 mg/dl EXTERNAL LAB SCRIBED Bilirubin 0.7 0.2 - 1.3 mg/dl EXTERNAL LAB SCRIBED Plasma Protein 0 0 - 0 g/dl EXTERNAL LAB SCRIBED Albumin 4.6 3.5 - 5.1 g/dl EXTERNAL LAB SCRIBED Alkaline Phosphatase 71 38 - 126 Units/L EXTERNAL LAB SCRIBED Alanine Transaminase (ALT) 17 6 - 35 Units/L EXTERNAL LAB SCRIBED Aspartate Transaminase (AST) 25 14 - 36 Units/L EXTERNAL LAB SCRIBED eGFR in 0 0 - 0 EXTERNAL LAB SCRIBED eGFR in NonAfrican Cay[place] Islander >60 60 - 1.73 EXTERNAL LAB Blood 02/01/2025 8:00 AM CDT Yu CHAVARRIA LAB BLOOD ORDERABLES Fin al Result Performing Organization Address [facility] de Phone Number EXTERNAL LAB * Vitamin B12 (02/01/2025) SCRIBED Vitamin B12 299.0 239 - 931 EXTERNAL LAB Blood 02/01/2025 Yu CHAVARRIA LAB BLOOD ORDERABLES Constantine rigo Result - Final Performing Organization Address [facility] de Phone Number EXTERNAL LAB * HM MAMMOGRAPHY (12/19/2024 2:12 PM CDT) Result [facility] Historical Provider HEALTH MAINTENANCE Final Result * Colonoscopy (10/31/2024 12:45 PM CDT) Anatomical Region Laterality Modality Other Result [facility] Historical Provider ENDOSCOPY PROCEDURES Lana l Result * HM ALBUMIN CREATININE RATIO, URINE (07/31/2024 7:32 AM LEAD CUSTOMER SERVICE REPRESENTATIVE) SCRIBED HM ALBUMIN CREATININE RATIO, URINE 21.0 EXTERNAL LAB 07/31/2024 7:32 AM LEAD CUSTOMER SERVICE REPRESENTATIVE Historical Provider HEALTH MAINTENANCE Final Result Performing Organization Address [facility] de Phone Number EXTERNAL LAB * Hemoglobin A1c (07/31/2024 7:31 AM LEAD CUSTOMER SERVICE REPRESENTATIVE) SCRIBED Hemoglobin A1c 5.5 4.0 - 5.6 % EXTERNAL LAB Blood 07/31/2024 7:31 AM LEAD CUSTOMER SERVICE REPRESENTATIVE Yu CHAVARRIA LAB BLOOD ORDERABLES Fin al Result Performing Organization Address [facility] Co de Phone Number EXTERNAL LAB * Lipid panel (07/31/2024 7:31 AM LEAD CUSTOMER SERVICE REPRESENTATIVE) SCRIBED Cholesterol, Total 143 30 - 199 mg/dL EXTERNAL LAB SCRIBED Triglycerides 102 <=149 mg/dL EXTERNAL LAB SCRIBED HDL 44 >=40 mg/dL EXTERNAL LAB SCRIBED LDL 78 <=129 mg/dL EXTERNAL LAB Scribed Non-HDL Cholesterol 0 NONE mg/dL EXTERNAL LAB SCRIBED Total Cholesterol/HDL Ratio 0 NONE EXTERNAL LAB Blood 07/31/2024 7:31 AM LEAD CUSTOMER SERVICE REPRESENTATIVE Yu CHAVARRIA LAB BLOOD ORDERABLES Fin al Result EXTERNAL LAB * DIABETES EYE EXAM (10/23/2023) SCRIBED DIABETIC DILATED EYE EXAM Normal Historical Provider MD HEALTH MAINTENANCE Final Result * Pap and HPV, reflex to HPV Genotypes (09/04/2023 8:32 AM LEAD CUSTOMER SERVICE REPRESENTATIVE) Pathologist [facility] CLINICAL INFORMATION: [facility] Comment: Postmenopausal WELL WOMAN EXAM LMP [facility] Comment:POSTMENOPAUSAL Previous Pap [facility] Comment:NONE GIVEN Prev. Bx [facility] Comment:NONE GIVEN SOURCE: [facility] Comment:Cervix, Endocervix Pap, specimen adequacy [facility] Comment: Satisfactory for evaluation. Endocervical/transformation zone component present. HPV interp [facility] Comment: Cytology Results: Negative for intraepithelial lesion or malignancy. COMMENTS [facility] Comment: This Pap test has been evaluated with computer assisted technology. Administrative Program Specialist [facility] Comment: CONRADO GODWIN(ASCP) CT Screening Location: [place] [address] [place] [address] Comment [facility] Comment: EXPLANATORY NOTE: The Pap is [...] High Risk E6/E7 Not Detected NOT DETECTED [employer] /Néstor ANDERS Comment: Not Detected High Risk HPV types (16,18,31,33,35,39,45,51,52, 56,58,59,66,68) were not detected. Other HPV types which cause anogenital lesions may be present. The significance of the other types of HPV in malignant processes has not been established. Methodology: Real Time PCR Thin prep 09/04/2023 8:3 2 AM LEAD CUSTOMER SERVICE REPRESENTATIVE 09/06/2023 12:53 PM LEAD CUSTOMER SERVICE REPRESENTATIVE Augustine Ledesma MD LAB CYTOLOGY ORDERAB LES Final Result [facility] [address] [place] [address] [employer]/[facility] [address] [place] [address] from Last 3 Months or Most Recently Relevant to Health Maintenance Insurance [facility] H[facility]/PPO Address: [facility] [id number] [place] [phone] [facility] HMO/PPO Address: [address] [address] Care Teams Weld Lay Out Worker Relationship Specialty Start Date End Date Yu Alexandra PA [address] [address] PCP - General Family Medicine 11/12/24
--- OUTSIDE RECORDS SUMMARY | 2025-02-22 07:11 | XMS_ITS | Clinical Summary ---
Author Organization [facility] Address [address] [place] [address] Care Team Providers Care Emergency Dept Tech Name Role Phone Unavailable Primary Care Provider [...]
--- OUTSIDE RECORDS SUMMARY | 2025-02-22 07:11 | XMS_ITS | Encounter Summary ---
Author Organization [facility] Healthcare Address [address] [place] [address] Care Team Providers Care Field Sales Trainer Name Role Phone Yu Alexandra Primary Care Provider + Encounter Details Date Type Department Care Team (Late st Contact Info) Description 02/06/2025 Results Follow-Up [facility] Family Medicine [address] [phone] Yu Alexandra PA [address] [place] [address] Comprehensive metabolic panel, Vitamin B12 Social History Tobacco Use Types Packs/Day Years Used Date Smoking Tobacco: Never Smokeless Tobacco: Never Alcohol Use Standard Drinks/Week Comments Yes 0 [...] on file Legal Sex Female 10:53 PM PLANISHER Gender Identity Female 05/16/2023 9:11 AM CDT Sexual Orientation Not on file documented as of this encounter Plan of Treatment Not on file documented as of this encounter Visit Diagnoses Not on filedocumented in this encounter Care Teams Field Sales Trainer Relationship Specialty Start Date End Date Yu Alexandra PA [address] [facility] [address] [place] [address] PCP - General Family Medicine 11/12/24 documented as of this encounter
[2025-02-22 07:51] LABS: Hemoglobin A1C 5.7 % (<5.7)
[2025-02-22 08:02] LABS: Cholesterol 186 mg/dL (0-200); HDL Direct 47 mg/dL; Triglycerides 136 mg/dL (<150)
== END 2025-02-22 07:06 | disposition home or self-care (01) ==
LOC: ANHLAB 07:08
PROVIDERS: PCP Family Medicine
DX: E78.5 Hyperlipidemia, unspecified (principal); E11.69 Type 2 diabetes mellitus with other specified complication
CPT/HCPCS: 36415; 80061; 83036